=== PATIENT | female | born 1970 | race Caucasian/White ===

== ENCOUNTER 2024-03-22 09:29 | Outpatient (AMB) | payer BC, SELFPAY ==
--- NOTE | 2024-03-22 09:32 | A.OFFVIS_ITS ---
Vital Signs 03/22/24 09:33 Height 5 ft 4 in Weight 177 lb 11.081 oz BMI 30.5 BP 118/70 Blood Pressure Location Lt brachial Position Sitting Pulse 72 Pulse Source Pulse Oximeter Pulse Oximetry (%) 98 Oxygen Delivery Method Room Air Intake Visit Reasons: Polyarthritis Intake Note: Patient presents for follow up on polyarthritis today. Allergies No Known Allergies Allergy (Verified 03/22/24 09:35) HPI HPI Polyarthritis: Details: She feels well. No joint swelling or new rash. No fevers, dyspnea, pleurisy, urinary symptoms. She has picked up more hours at her job. She was previously working twice a week. She sometimes does over 20,000 steps a day. She has intermittent thigh pain felt as a twinge. 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 Previously she was on prophylaxis Review of Systems Const All systems reviewed & are unremarkable except as noted in HPI and below Physical Exam Vital Signs: Last Vital Signs Pulse 72 03/22/24 09:33 BP 118/70 03/22/24 09:33 Pulse Ox 98 03/22/24 09:33 Oxygen Delivery Method Room Air 03/22/24 09:33 BMI result Body Mass Index 30.5 Const Other: General: Comfortable CVS: RRR Respiratory: clear to auscultation bilaterally. Good respiratory effort Skin: No lesions seen MSK: No tenderness of any joints. No synovitis. Good range of motion of upper extremity and lower extremity. Assessment & Plan Assessment & Plan (1) HERRERA (polyarteritis nodosa): Comment: Controlled on monotherapy with methotrexate Code(s): M30.0 - Polyarteritis nodosa Category: Medical Plan: Labs for disease and drug monitoring ordered Continue methotrexate 17.5 mg once weekly Continue folic acid 2 mg daily [facility]ing [facility] She will start HSV prophylaxis with daily dosing because in the past she has forgotten the evening dose when it was prescribed b.i.d.. If she has recurrence of oral HSV, we will then prescribed b.i.d. dosing Return to clinic in 3 months Orders: Orders Erythrocyte Sedimentation Rate Today M30.0 - Polyarteritis nodosa Alanine Aminotransferase Today Z79.60 - skilled nursing (current) use of unspecified immunomodulators and immunosuppressants C Reactive Protein Today M30.0 - Polyarteritis nodosa Aspartate Amino Transferase Today Z79.60 - watermelon inspector (current) use of unspecified immunomodulators and immunosuppressants Creatinine Today Z79.60 - skilled nursing (current) use of unspecified immunomodulators and immunosuppressants Hepatitis B,C Profile Today M30.0 - Polyarteritis nodosa T Spot TB Today M30.0 - Polyarteritis nodosa Complete Blood Count Auto Diff Today Z79.60 - skilled nursing (current) use of unspecified immunomodulators and immunosuppressants Medications: New valacyclovir 500 mg PO DAILY 30 tabs 11RF Coding Level of Care Code Est Pt Level 4 (85572) Complex EM visit Add On G2211 Diagnoses HERRERA (polyarteritis nodosa) M30.0
[2024-03-22 09:33] VITALS: BP 118/70; PULSE 72; O2SAT 98; BMI 30.5
== END 2024-03-22 10:12 | disposition home or self-care (01) ==
PROVIDERS: PCP Registered Nurse; Visit Provider Internal Medicine Rheumatology
DX: M30.0 Polyarteritis nodosa (principal)
CPT/HCPCS: 99214

== ENCOUNTER → 2024-03-22 09:29 | Outpatient (BNVA) | payer BC, SELFPAY | PROVIDERS: PCP Registered Nurse; Visit Provider Internal Medicine Rheumatology ==

== ENCOUNTER 2024-04-18 08:31 | Outpatient (REF) | payer BC, SELFPAY ==
--- OUTSIDE RECORDS SUMMARY | 2024-04-18 08:48 | XMS_ITS ---
Author Name [facility] Organization Unknown History of Medication Use Medication Directions Dispensed Refills Start Date End Date Stat Zepbound 5 MG/0.5ML pen-injector 08/28/2023 active citalopram (CeleXA) 10 MG tablet Take 1 tablet (10 mg total) by mouth daily. 05/16/2023 active hydroCHLOROthiazide (MICROZIDE) 12.5 MG capsule TAKE 1 CAPSULE BY MOUTH EVERY DAY IN THE MORNING FOR 90 DAYS 05/16/2023 active valACYclovir (VALTREX) 500 MG tablet Take 1 tablet (500 mg total) by mouth 2 (two) times a day. 05/16/2023 active citalopram (CeleXA) 20 MG tablet Take 1 tablet (20 mg total) by mouth daily. 05/16/2023 active ibuprofen (MOTRIN) 200 MG tablet Take 2 tablets (400 mg total) by mouth. 05/16/2023 active amLODIPine (NORVASC) 10 MG tablet Take 1 tablet (10 mg total) by mouth daily. 05/16/2023 active folic acid (FOLVITE) 1 MG tablet Take 1 tablet (1,000 mcg total) by mouth daily. 05/16/2023 active ibuprofen (MOTRIN) 200 MG tablet Take 2 tablets (400 mg total) by mouth. 05/16/2023 active methotrexate 25 MG/ML injection INJECT 0.5ML (12.5MG) ONCE WEEKLY 05/16/2023 active thiamine (VITAMIN B-1) 100 mg tablet Take 1 tablet (100 mg total) by mouth 2 (two) times a day. 05/16/2023 active levothyroxine (SYNTHROID, LEVOTHROID) 75 MCG tablet TAKE 1 TABLET BY MOUTH EVERY DAY IN THE MORNING ON EMPTY STOMACH FOR 90 DAYS 05/16/2023 active atorvastatin (LIPITOR) 20 MG tablet Take 1 tablet (20 mg total) by mouth daily. 05/16/2023 active LORazepam (ATIVAN) 0.5 MG tablet Take 1 tablet (0.5 mg total) by mouth 4 times daily (every 6 hours) as needed. 05/16/2023 active Dilt-XR 180 MG 24 hr capsule TAKE 1 CAPSULE BY MOUTH EVERY DAY FOR 30 DAYS 05/16/2023 active Problems Problem Status Onset Date Problem Type Date of Resoluti on Source Bone lesion active EncounterDiagnosisAct CCT
[2024-04-18 11:20] LABS: MANUAL DIFF FLAG NO
[2024-04-18 11:30] LABS: Basophils Percent Auto 0.7 % (0-2); Eosinophils Absolute Auto 0.1 X10*3/uL (0.0-0.4); Eosinophils Percent Auto 1.3 % (0-4); Hematocrit 39.3 % (37.0-47.0); Hemoglobin 13.4 g/dl (12.0-16.0); Imm Gran Abs Auto 0.01 X10*3/uL (0.00-0.03); Imm Gran Pct Auto 0.2 % (0.0-0.4); Lymphocytes Absolute Auto 1.3 X10*3/uL (1.2-4.9); Lymphocytes Percent Auto 29.3 % (20-40); Mean Corpuscular HGB Conc 34.1 g/dl (31.0-35.0); Mean Corpuscular Hemoglobin 32.8 pg (27.0-33.0); Mean Corpuscular Volume 96.1 fL (80.0-98.0); Mean Platelet Volume 10.5 fL (9.4-12.3); Monocytes Absolute Auto 0.3 X10*3/uL (0.1-1.2); Monocytes Percent Auto 6.7 % (2-11); Neutrophils Absolute Auto 2.8 x10*3/uL (2.0-8.3); Neutrophils Percent Auto 61.8 % (45-73); Platelet Count 319 X10*3/uL (160-400); Red Blood Count 4.09 X10*6/uL (4.20-5.50); Red Cell Distribution Width 12.3 % (11.0-16.0); White Blood Count 4.5 X10*3/uL (4.8-10.8)
[2024-04-18 11:44] LABS: Alanine Aminotransferase 15 U/L (0-31); Aspartate Amino Transferase 19 U/L (5-31); C Reactive Protein 0.25 mg/dL (< or = 0.50); Estimated Glomerular Filt Rate > 60
[2024-04-18 12:19] LABS: Erythrocyte Sedimentation Rate 10 MM/HR (0-20)
[2024-04-18 12:45] LABS: HBS Num1 2.89 mIU/mL (0-7.99); HBc Num1 0.16 S/CO (0.00-0.79); Hepatitis B Core Antibody Nonreactive (Nonreactive); Hepatitis B Surface Antigen Negative (Negative); ~HepC Num1 0.09 S/CO (0.00-0.79); ~Hepatitis B Surface Antibody NONREACTIVE (Nonreactive); ~Hepatitis C Antibody Nonreactive (Nonreactive)
[2024-04-21 17:49] LABS: TS Negative Control Passed; TS Panel A 0; TS Panel B 0; TS Positive Control Passed; TSpotTB Negative (Negative)
== END 2024-04-18 08:32 | disposition home or self-care (01) ==
LOC: HO.WFDLDS 08:31
PROVIDERS: Visit Provider Internal Medicine Rheumatology
DX: M30.0 Polyarteritis nodosa (principal); Z79.60 Long term (current) use of unspecified immunomodulators and immunosuppressants
CPT/HCPCS: 36415; 82565; 84450; 84460; 85025; 85652; 86140; 86481; 86704; 86706; 86803; 87340

== ENCOUNTER 2024-07-05 13:53 | Outpatient (AMB) | payer BC, SELFPAY ==
--- NOTE | 2024-07-05 13:59 | A.OFFVIS_ITS ---
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 Pain in knees and ankles are controlled. She is experiencing lower back pain radiating to sides exacerbated with activities with lifting at work. She feels the pain at the end of the day. She is working in a new job since March. Pain is localized to lower back and spreads to the sides. She has been using TENs unit every other day with temporary relief. NO new skin lesions. Review of Systems Const All systems reviewed & are unremarkable except as noted in HPI and below Physical Exam Vital Signs: Last Vital Signs Pulse 61 07/05/24 14:02 BP 170/100 H 07/05/24 14:02 Pulse Ox 98 07/05/24 14:02 Oxygen Delivery Method Room Air 07/05/24 14:02 BMI result Body Mass Index 29.7 Const Other: General: Comfortable CVS: RRR Respiratory: clear to auscultation bilaterally. Good respiratory effort Skin: No lesions seen MSK: No tenderness of any joints. No synovitis. Normal range of motion of upper extremity and lower extremity. No tenderness of lumbar spinous process, paraspinal muscles or laterally. Normal lumber spine flexion. Assessment & Plan Assessment & Plan (1) HERRERA (polyarteritis nodosa): Comment: Controlled on monotherapy with methotrexate. She has occasional self limited pain on right femur. 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 She then developed rare manifestation of periostitis of right femur 01/2023 resolving on repeat MRI 08/19/2023. Mouth ulcers on po MTX resolved with increase the folic acid to 2 mg daily. MTX SC 03/2022-09/2022 then restarted 02/2023-. AZA 09/2022-02/2023 d/c vomiting. Code(s): M30.0 - Polyarteritis nodosa Category: Medical Plan: Labs for disease and drug monitoring ordered Continue methotrexate 17.5 mg once weekly SC. If she continues to remain in remission, will consider change SC to po Continue folic acid 2 mg daily R femur x-ray follow-up study HSV prophylaxis with valacylovir 500 mg daily. If she has active genital HSV, I will increase frequency of valacyclovir to 500 mg b.i.d. 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 We discussed conservative management. Code(s): M54.50 - Low back pain, unspecified Category: Medical Qualifiers: Back pain laterality: bilateral Chronicity: chronic Sciatica presence: without sciatica Qualified Code(s): M54.50 - Low back pain, unspecified; G89.29 - Other chronic pain Plan: PT ordered she has scheduled regular massages Continue home TENs unit every other day RTC 3 months (3) Lumbar spondylosis: Code(s): M47.816 - Spondylosis without myelopathy or radiculopathy, lumbar region Category: Medical Plan: See above (4) Myofascial muscle pain: Code(s): M79.18 - Myalgia, other site Category: Medical Plan: See above Orders: Orders PT Evaluation and Treatment Today M47.816 - Spondylosis without myelopathy or radiculopathy, lumbar region, M79.18 - Myalgia, other site Erythrocyte Sedimentation Rate Today Z79.899 - Other fci (current) drug therapy XR femur RT 2V Today M30.0 - Polyarteritis nodosa Aspartate Amino Transferase Today Z79.60 - longterm (current) use of unspecified immunomodulators and immunosuppressants Complete Blood Count Auto Diff Today Z79.60 - longterm (current) use of unspecified immunomodulators and immunosuppressants Creatinine Today Z79.60 - longterm (current) use of unspecified immunomodulators and immunosuppressants Alanine Aminotransferase Today Z79.60 - intermediate frame tender (current) use of unspecified immunomodulators and immunosuppressants C Reactive Protein Today Z79.899 - Other fci (current) drug therapy Medications: New folic acid 2 mg (2 x 1 mg) PO DAILY 180 tabs 3RF Coding Level of Care Code Est Pt Level 4 (71060) Complex EM visit Add On G2211 Diagnoses HERRERA (polyarteritis nodosa) M30.0 Chronic bilateral low back pain without sciatica M54.50; G89.29 Back pain laterality: bilateral Chronicity: chronic Sciatica presence: without sciatica Lumbar spondylosis M47.816 Myofascial muscle pain M79.18
[2024-07-05 14:02] VITALS: BP 170/100; PULSE 61; O2SAT 98; BMI 29.7
--- OUTSIDE RECORDS SUMMARY | 2024-07-05 16:34 | XMS_ITS ---
Author Organization [facility] Address [address] [place] [id number] Care Team Providers Care Insurance Verify Rep Name Role Phone ASHLYN LAM Primary Care Provider REASON FOR VISIT f/u meds Encounters Encounter Location Date Provider Diagnosis [address] [id number] 05/15/2024 ASHLYN LAM PLAN OF TREATMENT Next Appt Details Provider Name:ASHLYN Alston, 07/24/2024 08:00:00 AM, [address] [place] [address], [phone], Progress Notes * JOSEPH HODGEDOB:1970 ( 54 yo F)Acc No.[id number]:05/15/2024 Progress Notes Patient:??JOSEPH HODGE Provider:??Ashlyn Lam DNP :1970?Age:53 Y?Sex:Fe male Date:05/15/2024 Phone: Address:[address] [place] [address], [address], [place], [id number] Subjective: * Chief Complaints: * ?1. F/u meds. * Medical History:?? Objective: Assessment: Plan: * Treatment: * Billing Information: * Visit Code:?? * Procedure Codes:?? * Sign off status: Pending * Provider:??Ashlyn Lam DNP Date:??0 05/15/2024
--- OUTSIDE RECORDS SUMMARY | 2024-07-05 16:35 | XMS_ITS | Clinical Summary ---
Author Organization [facility] Address [address] [place] [id number] Care Team Providers Care Circulation Worker Name Role Phone Elisa Alarcon MD Primary Care Provider Allergies No known active allergies Medications Medication Sig Dispensed Refills Start Date End Date Status amLODIPine (NORVASC) tablet 5 mg Take 1 tablet by mouth daily. 0 10/09/2020 Active citalopram (CeleXA) 20 MG tablet Take 1 tablet by mouth daily. 0 01/27/2021 Active ibuprofen 200 MG tablet Take 400 mg by mouth. 0 Active levothyroxine (SYNTHROID) tablet 75 mcg Take 1 tablet by mouth daily. 0 01/07/2021 Active valsartan-hydroCHLOROt hiazide (DIOVAN-HCT) 320-12.5 MG per tablet Take 1 tablet by mouth daily. 0 10/01/2020 Active metoprolol succinate (TOPROL-XL) 24 hr tablet 25 mg 0 03/28/2021 Active hydroCHLOROthiazide (MICROZIDE) 12.5 MG capsule 0 03/28/2021 Active Active Problems No known active problems Social History Tobacco Use Types Packs/Day Years Used Date Smoking Tobacco: Former Cigarettes 1 - 2001 Smokeless Tobacco: Never Alcohol Use Standard Drinks/Week Comments Yes 14 (1 standard drink = 0.6 oz pu re alcohol) Sex and Gender Information Value Date Recorded Sex Assigned at Not on file Gender Identity Not on file Sexual Orientation Not on file Job Start Date Occupation Industry Not on file Not on file Not on file Last Filed Vital Signs Vital Sign Reading Time Taken Comments Blood Pressure - - Pulse - - Temperature - - Respiratory Rate - - Oxygen Saturation - - Inhaled Oxygen Concentration - - Weight 109.3 kg (241 lb) 06/30/2021 1:58 PM EDT Height 162.6 cm (5' 4 ) 06/30/2021 1:58 PM EDT Body Mass Index 41.37 06/30/2021 1:58 PM EDT Plan of Treatment Health Maintenance Due Date Last Done Comments Hepatitis B Vaccines (1 of 3 - 3-dose series) 1970 Hepatitis C Screening 1970 COVID-19 Vaccine (#1) 1970 Depression Screening 1983 BMI Counseling 06/15/1989 Preventative Health Evaluation 06/15/1989 Cervical Cancer Screening (Pap Smear) 06/15/1992 Colon Cancer Screening (Colonoscopy) 06/15/2016 DTap / Tdap / Td (5 - Td or Tdap) 11/23/2019 11/22/2009, 12/23/1972, 1970, Additional history exists Breast Cancer Screening (Mammogram) 06/15/2021 Shingrix-Zoster Vaccine (1 of 2) 06/15/2021 Influenza Vaccine (#1) 2023 9, 01/03/2013, 12/22/2011, Additional history exists Pneumococcal Vaccine Aged Out No long er eligible based on patient's age to complete this topic RSV Ped < 20 months Aged Out No longe r eligible based on patient's age to complete this topic Care Teams Circulation Worker Relationship Specialty Start Date End Date Elisa Alarcon MD PCP - General Internal Medicine 02/17/21
--- OUTSIDE RECORDS SUMMARY | 2024-07-05 16:35 | XMS_ITS | Clinical Summary ---
Author Organization [facility] Address [address] [place] [address] Care Team Providers Care Money Position Officer Name Role Phone Genaro Jacinta ROLLE Primary Care Provider Allergies No known active allergies Medications Medication Sig Dispensed Refills Start Date End Date Status amLODIPine (NORVASC) 10 MG tablet Take 1 tablet (10 mg total) by mouth daily. 05/05/2023 Active atorvastatin (LIPITOR) 20 MG tablet Take 1 tablet (20 mg total) by mouth daily. 03/23/2023 Active citalopram (CeleXA) 10 MG tablet Take 1 tablet (10 mg total) by mouth daily. 04/26/2023 Active citalopram (CeleXA) 20 MG tablet Take 1 tablet (20 mg total) by mouth daily. 02/04/2023 Active folic acid (FOLVITE) 1 MG tablet Take 1 tablet (1,000 mcg total) by mouth daily. 03/12/2023 Active levothyroxine (SYNTHROID, LEVOTHROID) 75 MCG tablet TAKE 1 TABLET BY MOUTH EVERY DAY IN THE MORNING ON EMPTY STOMACH FOR 90 DAYS 03/15/2023 Active methotrexate 25 MG/ML injection INJECT 0.5ML (12.5MG) ONCE WEEKLY 04/30/2023 Active thiamine (VITAMIN B-1) 100 mg tablet Take 1 tablet (100 mg total) by mouth 2 (two) times a day. 02/23/2023 Active LORazepam (ATIVAN) 0.5 MG tablet Take 1 tablet (0.5 mg total) by mouth 4 times daily (every 6 hours) as needed. Active valACYclovir (VALTREX) 500 MG tablet Take 1 tablet (500 mg total) by mouth 2 (two) times a day. 02/04/2023 Active hydroCHLOROthiazide (MICROZIDE) 12.5 MG capsule TAKE 1 CAPSULE BY MOUTH EVERY DAY IN THE MORNING FOR 90 DAYS 03/07/2023 Active Dilt-XR 180 MG 24 hr capsule TAKE 1 CAPSULE BY MOUTH EVERY DAY FOR 30 DAYS 05/05/2023 Active ibuprofen (MOTRIN) 200 MG tablet Take 2 tablets (400 mg total) by mouth. Active Zepbound 5 MG/0.5ML pen-injector 08/24/2023 Active Family History Medical History Relation Name Comments Mental illness Father dad Kidney disease Maternal Aunt 1 paty Substance Abuse Maternal Aunt 2 shobha Colon cancer Maternal Grandfather pop Lung cancer Maternal Grandfather pop Diabetes Maternal Grandmother octavio Kidney disease Maternal Uncle win Anxiety disorder Mother mom COPD Mother mom Heart attack Mother mom Heart disease Mother mom Hypertension Mother mom Kidney disease Mother mom Substance Abuse Paternal Grandfather dad's father Glaucoma Paternal Grandmother gram Substance Abuse Paternal Uncle mateusz Mental illness Sister h Mental illness Son n Relation Name Status Comments Father dad Maternal Aunt 1 paty Maternal Aunt 2 shobha Maternal Grandfather pop Maternal Grandmother octavio Maternal Uncle win Mother mom Paternal Grandfather dad's father Paternal Grandmother gram Paternal Uncle mateusz Sister h Son n Social History Tobacco Use Types Packs/Day Years Used Date Smoking Tobacco: Former Tobacco Cessation:Counseling Given: Not Answered Comments:quit several years ago Alcohol Use Standard Drinks/Week Comments Not Currently 0 (1 standard drink = 0.6 oz pur e alcohol) Sex and Gender Information Value Date Recorded Sex Assigned at Female 05/12/2023 10:22 AM EST Gender Identity Female 05/12/2023 10:22 AM EST Sexual Orientation Choose not to disclose 2023 10:22 AM EST Last Filed Vital Signs Vital Sign Reading Time Taken Comments Blood Pressure 125/80 08/25/2023 10:48 AM EDT Pulse 73 08/25/2023 10:48 AM EDT Temperature 36.8 ??C (98.2 ??F) 08/25/2023 10:48 AM E DT Respiratory Rate 18 08/25/2023 10:48 AM EDT Oxygen Saturation - - Inhaled Oxygen Concentration - - Weight 91.2 kg (201 lb) 08/25/2023 10:48 AM EDT Height 162.6 cm (5' 4 ) 08/25/2023 10:48 AM EDT Body Mass Index 34.5 08/25/2023 10:48 AM EDT Plan of Treatment Health Maintenance Due Date Last Done Comments Hepatitis C Virus Screening 1970 COVID-19 Vaccine (#1) 06/15/1976 HIV Screening 06/15/1984 DTaP/Tdap/Td Vaccines (1 - Tdap) 06/15/1990 Hepatitis B Vaccines (1 of 3 - 19+ 3-dose series) 06/03 Pneumococcal Vaccines 50+ (1 of 2 - PCV) 06/15/1990 Zoster (Shingles) Vaccine (1 of 2) 06/15/1990 Pap Smear (Ages 21-65) 06/15/1992 Mammogram 2011 Colonoscopy 06/15/2016 Influenza Vaccine 11/04/2023 Care Teams Money Position Officer Relationship Specialty Start Date End Date Jacinta Lam APRN [address] [place] [id number] PCP - General Internal Medicine 05/04/23
--- OUTSIDE RECORDS SUMMARY | 2024-07-05 16:35 | XMS_ITS ---
Author Organization [facility] Address [address] [place] [phone] Care Team Providers Care Marketing Analytics Manager Name Role Phone ASHLYN FERRARI Primary Care Provider [phone] REASON FOR VISIT Work Clearance request Encounters Encounter Location Date Provider Diagnosis [address] [id number] 03/23/2024 ASHLYN FERRARI PLAN OF TREATMENT Next Appt Details Provider Name:ASHLYN Alston, 07/24/2024 08:00:00 AM, [address] [place] [address], [phone], Progress Notes * JOSEPH HODGEDOB:1970 ( 53 yo F)Acc No.[id number]:03/23/2024 Patient:??JOSEPH HODGE :1970?Age:53 Y?Sex:Fe male Phone: Address:[address] , [address], [place] [address] * true * Date:??
--- OUTSIDE RECORDS SUMMARY | 2024-07-05 16:35 | XMS_ITS ---
Author Organization [facility] Address [address] [place] [phone] Care Team Providers Care Bisque Cleaner Name Role Phone ASHLYN FERRARI Primary Care Provider REASON FOR VISIT Refills MEDICATIONS Medication SIG (Take, Route, Fr equency, Duration) Notes Start Date End Date Status Zepbound 7.5 MG/0.5ML 0.5 mL Subcutaneou s once every 7 days as directed for 90 days 05/10/2024 06/09/2024 Active Encounters Encounter Location Date Provider Diagnosis [address] [id number] 05/10/2024 ASHLYN FERRARI PLAN OF TREATMENT Medication Medication Name Sig Start Date Stop Date Notes Zepbound 7.5 MG/0.5ML 0.5 mL Subcutaneou s once every 7 days as directed for 90 days 05/10/2024 06/09/2024 Next Appt Details Provider Name:ASHLYN Alston, 07/24/2024 08:00:00 AM, [address] [place] [address], [phone], Progress Notes * JOSEPH HODGEDOB:1970 ( 53 yo F)Acc No.[id number]:05/10/2024 Patient:??JOSEPH HODGE :1970?Age:53 Y?Sex:Fe male Phone: Address:[facility], [address], [place] [address] * Refills?? Start Zepbound Solution Auto-injector, 7.5 MG/0.5ML, Subcutaneous, 12, 0.5 mL, once every 7 days as directed, 90 days, Refills=2 * true * Date:??
== END 2024-07-05 14:30 | disposition home or self-care (01) ==
LOC: HO.RHES 13:53
PROVIDERS: PCP Registered Nurse; Visit Provider Internal Medicine Rheumatology
DX: M30.0 Polyarteritis nodosa (principal); M54.50 Low back pain, unspecified; G89.29 Other chronic pain; M47.816 Spondylosis without myelopathy or radiculopathy, lumbar region; M79.18 Myalgia, other site
CPT/HCPCS: 99214

== ENCOUNTER 2024-07-05 13:53 | Outpatient (REF) | payer BC, SELFPAY ==
--- OUTSIDE RECORDS SUMMARY | 2024-07-05 17:15 | XMS_ITS | Clinical Summary ---
Author Organization [facility] Address [address] [place] [id number] Care Team Providers Care It Security Engineer Name Role Phone Elisa Alarcon MD Primary [...] age to complete this topic Care Teams It Security Engineer Relationship Specialty Start Date End Date Elisa Alarcon MD PCP - General Internal Medicine 02/17/21
--- OUTSIDE RECORDS SUMMARY | 2024-07-05 17:15 | XMS_ITS | Patient Health Record ---
Author Organization Genaro [facility] Simona cantor [facility] Address [address] [place] [phone] Care Team Providers Care Loom Blower Name Role Phone JACINTA LAM Primary Care Provider ALLERGIES No Known Allergies RESULTS Component Value Reference Range Notes COMPREHENSIVE METABOLIC PANE L (43912) Reviewed date:09/15/2023 01:39:32 PM Interpretation: Performing Lab:NL2, [employer] [place] Plan[facility] [address] [place], [place] [address] Ignacio Bernstein Notes/Report: NON-FASTING; NON-FASTING; NON-FASTING FASTING:NO FASTING: NO GLUCOSE 91 65-139 mg/dL Non-fasting reference interval UREA NITROGEN (BUN) 11 7-25 mg/dL CREATININE 0.65 0.50-1.03 mg/dL EGFR 106 > OR = 60 mL/min/1.73m2 BUN/CREATININE RATIO SEE NOTE: 6-22 (calc) Not Reported: BUN and Creatinine are within reference range. SODIUM 140 135-146 mmol/L POTASSIUM 4.5 3.5-5.3 mmol/L CHLORIDE 104 98-110 mmol/L CARBON DIOXIDE 29 20-32 mmol/L CALCIUM 9.9 8.6-10.4 mg/dL PROTEIN, TOTAL 7.0 6.1-8.1 g/dL ALBUMIN 4.5 3.6-5.1 g/dL GLOBULIN 2.5 1.9-3.7 g/dL (calc) ALBUMIN/GLOBULIN RATIO 1.8 1.0-2.5 (calc) BILIRUBIN, TOTAL 0.8 0.2-1.2 mg/dL ALKALINE PHOSPHATASE 85 37-153 U/L AST 24 10-35 U/L ALT 54 6-29 U/L GGT (482) Reviewed date:09/15/2023 01:39:32 PM Interpretation: Performing Lab:NL2, [employer] Yayamariana Garcia Day Notes/Report: NON-FASTING; NON-FASTING; NON-FASTING FASTING:NO FASTING: NO GGT 11 3-70 U/L CBC (INCLUDES DIFF/PLT) (639 9) Reviewed date:09/15/2023 01:39:32 PM Interpretation: Performing Lab:MX Logic, [facility] Yayamariana Jacobscarine Notes/Report: NON-FASTING; NON-FASTING; NON-FASTING FASTING:NO FASTING: NO WHITE BLOOD CELL COUNT 4.3 3.8-10.8 Thousand/ uL RED BLOOD CELL COUNT 4.12 3.80-5.10 Million/uL HEMOGLOBIN 13.5 11.7-15.5 g/dL HEMATOCRIT 40.3 35.0-45.0 % MCV 97.8 80.0-100.0 fL MCH 32.8 27.0-33.0 pg MCHC 33.5 32.0-36.0 g/dL RDW 12.5 11.0-15.0 % PLATELET COUNT 344 140-400 Thousand/uL MPV 10.3 7.5-12.5 fL ABSOLUTE NEUTROPHILS 2765 7403-9003 cells/uL ABSOLUTE LYMPHOCYTES 4127 206-3712 cells/uL ABSOLUTE MONOCYTES 258 200-950 cells/uL ABSOLUTE EOSINOPHILS 30 15-500 cells/uL ABSOLUTE BASOPHILS 22 0-200 cells/uL NEUTROPHILS 64.3 LYMPHOCYTES 28.5 MONOCYTES 6.0 EOSINOPHILS 0.7 BASOPHILS 0.5 THYROID PANEL WITH TSH (7444 ) Reviewed date:01/27/2024 10:18:17 AM Interpretation: Performing Lab:MX Logic, [facility] Yayamariana Garcia [place] Notes/Report: NON-FASTING; NON-FASTING; NON-FASTING; NON-FASTING; NON-FAST FASTING:YES FASTING: YES T3 UPTAKE 25 22-35 % T4 (THYROXINE), TOTAL 9.5 5.1-11.9 mcg/dL FREE T4 INDEX (T7) 2.4 1.4-3.8 TSH 1.14 Reference Range > or = 20 Years 0.40-4.50 Ranges First trimester 0.26-2.66 Second trimester 0.55-2.73 Third trimester 0.43-2.91 CARDIO IQ(R) LIPID PANEL (91 716) Reviewed date:02/09/2024 01:26:16 PM Interpretation: Performing Lab:Evelia, [place] [facility] [employer]670[facility] Baldwin [address], [address], QqkeurvjaCL[address] Josh Armendariz PhD,[facility] Notes/Report: NON-FASTING; NON-FASTING; NON-FASTING; NON-FASTING; NON-FAST FASTING:YES FASTING: YES CHOLESTEROL, TOTAL 120 <200 mg/dL HDL CHOLESTEROL 59 >49 mg/dL TRIGLYCERIDES 115 <150 mg/dL LDL-CHOLESTEROL 41 <100 mg/dL (calc) Desirable range <100 mg/dL for primary prevention; <70 mg/dL for patients with CHD or diabetic patients with >= 2 CHD risk factors. LDL-C is now calculated using the Otis-North calculation, which is a validated novel method providing better accuracy than the Friedewald equation in the estimation of LDL-C. Otis SS et al. KHANH. 2013;310(19): 4192-3371 (http://education.[employer].com/faq/OSU469) LDL-C is now calculated using the Otis-North calculation, which is a validated novel method providing better accuracy than the Friedewald equation in the estimation of LDL-C. Otis SS et al. KHANH. 2013;310(19): 5116-2981 (http://education.[employer].com/faq/KKO766) CHOL/HDLC RATIO 2.0 <5.0 calc NON HDL CHOLESTEROL 61 <130 mg/dL (calc) For patients with diabetes plus 1 major ASCVD risk factor, treating to a non-HDL-C goal of <100 mg/dL (LDL-C of <70 mg/dL) is considered a therapeutic option. For patients with diabetes plus 1 major ASCVD risk factor, treating to a non-HDL-C goal of <100 mg/dL (LDL-C of <70 mg/dL) is considered a therapeutic option. TSH+FREE T4 (81973) Reviewed date:01/27/2024 10:18:17 AM Interpretation: Performing Lab:NL2, [facility] Center[facility] [facility] Francisco [facility] Notes/Report: NON-FASTING; NON-FASTING; NON-FASTING; NON-FASTING; NON-FAST FASTING:YES FASTING: YES TSH 1.14 Reference Range > or = 20 Years 0.40-4.50 Ranges First trimester 0.26-2.66 Second trimester 0.55-2.73 Third trimester 0.43-2.91 T4, FREE 1.2 0.8-1.8 ng/dL IRON, TIBC AND FERRITIN PANE L (5616) Reviewed date:01/27/2024 10:18:17 AM Interpretation: Performing Lab:MX Logic, RegulatoryB[facility] CenterNotizzaDaniel [place] [phone] [facility] Notes/Report: NON-FASTING; NON-FASTING; NON-FASTING; NON-FASTING; NON-FAST FASTING:YES FASTING: YES IRON, TOTAL 102 45-160 mcg/dL IRON BINDING CAPACITY 265 250-450 mcg/dL (jered c) % SATURATION 38 16-45 % (calc) FERRITIN 127 16-232 ng/mL ALBUMIN, RANDOM URINE W/CREA TININE (6517) Reviewed date:01/28/2024 10:32:07 AM Interpretation: Performing Lab:MX Logic, [facility] CenterNotizzaDaniel [place] [id number] [facility] Notes/Report: NON-FASTING; NON-FASTING; NON-FASTING; NON-FASTING; NON-FAST FASTING:YES FASTING: YES CREATININE, RANDOM URINE 60 20-275 mg/dL ALBUMIN, URINE 1.7 See Note: mg/dL Reference Range: Reference Range Not established ALBUMIN/CREATININE RATIO, RANDOM URINE 28 <30 mg/g creat The ADA defines abnormalities in albumin excretion as follows: Albuminuria Category Result (mg/g creatinine) Normal to Mildly increased <30 Moderately increased 30-299 Severely increased > OR = 300 The ADA recommends that at least two of three specimens collected within a 3-6 month period be abnormal before considering a patient to be within a diagnostic category. COMPREHENSIVE METABOLIC PANE L (34985) Reviewed date:01/27/2024 10:18:17 AM Interpretation: Performing Lab:NLMagnetic, [facility] Twoziewo[address] [facility] Ignacio Bernstein Notes/Report: NON-FASTING; NON-FASTING; NON-FASTING; NON-FASTING; NON-FAST FASTING:YES FASTING: YES GLUCOSE 86 65-99 mg/dL Fasting reference interval UREA NITROGEN (BUN) 10 7-25 mg/dL CREATININE 0.70 0.50-1.03 mg/dL EGFR 104 > OR = 60 mL/min/1.73m2 BUN/CREATININE RATIO SEE NOTE: 6-22 (calc) Not Reported: BUN and Creatinine are within reference range. SODIUM 139 135-146 mmol/L POTASSIUM 4.2 3.5-5.3 mmol/L CHLORIDE 103 98-110 mmol/L CARBON DIOXIDE 27 20-32 mmol/L CALCIUM 10.3 8.6-10.4 mg/dL PROTEIN, TOTAL 7.7 6.1-8.1 g/dL ALBUMIN 4.9 3.6-5.1 g/dL GLOBULIN 2.8 1.9-3.7 g/dL (calc) ALBUMIN/GLOBULIN RATIO 1.8 1.0-2.5 (calc) BILIRUBIN, TOTAL 0.7 0.2-1.2 mg/dL ALKALINE PHOSPHATASE 85 37-153 U/L AST 12 10-35 U/L ALT 22 6-29 U/L CARDIO IQ(R) DIRECT LDL (915 23) Reviewed date:02/09/2024 01:26:16 PM Interpretation: Performing Lab:Tony, [employer] [address], [address], NdswgctcxMX[address] Josh Armendariz PhD,[facility] Notes/Report: NON-FASTING; NON-FASTING; NON-FASTING; NON-FASTING; NON-FAST FASTING:YES FASTING: YES DIRECT LDL 48 <100 mg/dL Desirable range <100 mg/dL for primary prevention; <70 mg/dL for patients with CHD or diabetic patients with >= 2 CHD risk factors. CARDIO IQ(R) LIPOPROTEIN (a) (64222) Reviewed date:02/09/2024 01:26:16 PM Interpretation: Performing Lab:Tony, [employer].[facility] [address], [address], ZcoesgomfHZ[address] Josh Armendariz PhD,[facility] Notes/Report: NON-FASTING; NON-FASTING; NON-FASTING; NON-FASTING; NON-FAST FASTING:YES FASTING: YES LIPOPROTEIN (a) <10 <75 nmol/L Risk: Optimal <75 nmol/L; Moderate 75-125 nmol/L; High >125 nmol/L. Cardiovascular event risk category cut points (optimal, moderate, high) are based on David Trinidad [facility] 2017;69:692-711. CBC (INCLUDES DIFF/PLT) (639 9) Reviewed date:01/27/2024 10:18:07 AM Interpretation: Performing Lab:NL2, [facility] [address] [place], [place] [address] Ignacio Bernstein Notes/Report: NON-FASTING; NON-FASTING; NON-FASTING; NON-FASTING; NON-FAST FASTING:YES FASTING: YES WHITE BLOOD CELL COUNT 6.1 3.8-10.8 Thousand/ uL RED BLOOD CELL COUNT 4.40 3.80-5.10 Million/uL HEMOGLOBIN 15.0 11.7-15.5 g/dL HEMATOCRIT 44.6 35.0-45.0 % MCV 101.4 80.0-100.0 fL MCH 34.1 27.0-33.0 pg MCHC 33.6 32.0-36.0 g/dL For adults, a slight decrease in the calculated MCHC value (in the range of 30 to 32 g/dL) is most likely not clinically significant; however, it should be interpreted with caution in correlation with other red cell parameters and the patient's clinical condition. RDW 12.7 11.0-15.0 % PLATELET COUNT 363 140-400 Thousand/uL MPV 10.1 7.5-12.5 fL ABSOLUTE NEUTROPHILS 4496 7992-4918 cells/uL ABSOLUTE LYMPHOCYTES 4197 711-5962 cells/uL ABSOLUTE MONOCYTES 354 200-950 cells/uL ABSOLUTE EOSINOPHILS 73 15-500 cells/uL ABSOLUTE BASOPHILS 31 0-200 cells/uL NEUTROPHILS 73.7 LYMPHOCYTES 18.8 MONOCYTES 5.8 EOSINOPHILS 1.2 BASOPHILS 0.5 CARDIO IQ(R) HEMOGLOBIN A1c (45226) Reviewed date:02/09/2024 01:26:16 PM Interpretation: Performing Lab:Evelia, [employer].[address], [address], HlrenirnzXQ[address] Josh Armendariz PhD,[facility] Notes/Report: NON-FASTING; NON-FASTING; NON-FASTING; NON-FASTING; NON-FAST FASTING:YES FASTING: YES HEMOGLOBIN A1c 4.9 <5.7 % For the purpose of screening for the presence of diabetes: <5.7% is consistent with the absence of diabetes; 5.7-6.4% is consistent with increased risk for diabetes (prediabetes); >= 6.5% is consistent with diabetes. This assay result is consistent with a decreased risk of diabetes. Currently, no consensus exists regarding use of hemoglobin A1c for diagnosis of diabetes in children. According to [place] Diabetes Association (ADA) guidelines, hemoglobin A1c <7.0% represents optimal control in non- diabetic patients. Different metrics may apply to specific patient populations. Standards of Medical Care in Diabetes (ADA). This test was performed on the Leigh javed c503 platform. Effective 06/08/2023, a change in test platforms from the Nelson Sales Clerk Food to the Leigh javed c503 may have shifted HbA1c results compared to historical results. Based on laboratory validation testing conducted at [facility], the Leigh platform relative to the Nelson platform had an average increase in HbA1c value of <=0.3%. This difference is within accepted variability established by the National Glycohemoglobin Standardization Program. Note that not all individuals will have had a shift in their results and direct comparisons between historical and current results for testing conducted on different platforms is not recommended. CARDIO IQ(R) APOLIPOPROTEIN EVAL (21847) Reviewed date:02/09/2024 01:26:16 PM Interpretation: Performing Lab:Evelia [employer].[address], [address], IwkfxdzbzAE[address] Josh Armendariz PhD,[facility] Notes/Report: NON-FASTING; NON-FASTING; NON-FASTING; NON-FASTING; NON-FAST FASTING:YES FASTING: YES APOLIPOPROTEIN A1 166 >124 mg/dL Risk, Male: Optimal >= 115 mg/dL; High < 115 mg/dL; Risk, Female: Optimal >= 125 mg/dL; High <125 mg/dL; Cardiovascular event risk category cut points (optimal, high) are based on the AMORIS study Michele G et al. J Channel Marketing Specialist Med. 2004;255:188-205. APOLIPOPROTEIN B 47 <90 mg/dL Risk: Optimal <90 mg/dL; Moderate 90-119 mg/dL; High >= 120 mg/dL; Cardiovascular event risk category cut points (optimal, moderate, high) are based on National Lipid Association recommendations- Garcia TA et al. J of Clin Lipid. 2015; 9: 129-169 and Maco PS et al. Endocr Pract. 2017;23(Suppl 2):1-87. APOLIPOPROTEIN B/A1 RATIO 0.28 <0.63 Risk, Male: Optimal <0.77 mg/dL; Moderate 0.77-0.95 mg/dL; High >0.95 mg/dL; Risk, Female: Optimal <0.63 mg/dL; Moderate 0.63-0.78 mg/dL; High >0.78 mg/dL. Cardiovascular event risk category cut points (optimal, moderate, high) are based on the AMORIS study, Chivo G et al. J Channel Marketing Specialist Med. 2004;255:188-205. CARDIO IQ(R) INSULIN (19277) Reviewed date:02/09/2024 01:26:16 PM Interpretation: Performing Lab:Evelia, [facility] [place], [place] [address]egKaiser Foundation Hospitalfrancisco javier, [address] [place], [place] [address]HoepleoxhBG[address] Josh Armendariz PhD,[facility] Notes/Report: NON-FASTING; NON-FASTING; NON-FASTING; NON-FASTING; NON-FAST FASTING:YES FASTING: YES INSULIN 16.0 <18.5 uIU/mL VITAMIN B12/FOLATE, SERUM PA JUDD (7080) Reviewed date:01/27/2024 10:18:17 AM Interpretation: Performing Lab:NL2, [facility] [address]jugwy[address] Ignacio Bernstein Notes/Report: NON-FASTING; NON-FASTING; NON-FASTING; NON-FASTING; NON-FAST FASTING:YES FASTING: YES VITAMIN B12 047 945-8487 pg/mL FOLATE, SERUM 14.5 Reference Range Low: <3.4 Borderline: 3.4-5.4 Normal: >5.4 CARDIO IQ(R) FIBRINOGEN ANTI GEN, NEPHELOMETRY (19302) Reviewed date:02/09/2024 01:26:16 PM Interpretation: Performing Lab:Evelia, [facility], [address], DwbghjkidSA[address] Josh Armendariz PhD,[facility] Notes/Report: NON-FASTING; NON-FASTING; NON-FASTING; NON-FASTING; NON-FAST FASTING:YES FASTING: YES FIBRINOGEN ANTIGEN, NEPHELOMETRY 337 180-350 mg/dL Risk: Optimal <350 mg/dL; High >=350 mg/dL. Reference Range: 180-350 mg/dL. Adult cardiovascular event risk category cut points (optimal, moderate, high) are based on Siemens BN II and BN ProSpec(TM) System package insert. T3 REVERSE, LC/MS/MS (33938) Reviewed date:02/07/2024 06:10:53 AM Interpretation: Performing Lab:JACKY [facility] [id number] Mitch Morgan, [id number] Elkin Murphy M.D.,PhD Notes/Report: NON-FASTING; NON-FASTING; NON-FASTING; NON-FASTING; NON-FAST FASTING:YES FASTING: YES T3 REVERSE, LC/MS/MS 15 8-25 ng/dL This test was developed and its analytical performance characteristics have been determined by [employer] [place], [place]. It has not been cleared or approved by the U.S. Food and Drug Administration. This assay has been validated pursuant to the CLIA regulations and is used for clinical purposes. QUANTIFERON(R)-TB GOLD PLUS, 1 TUBE (35839) Reviewed date:02/24/2024 05:59:04 AM Interpretation: Performing Lab:NL2, [facility] Nlaeupzi[address] [place], [place] [address] Ignacio Bernstein Notes/Report: FASTING:NO FASTING: NO QUANTIFERON(R)-TB GOLD PLUS, 1 TUBE NEGATIVE NEGATIVE Negative test result. M. tuberculosis complex infection unlikely. NIL 0.01 MITOGEN-NIL 7.15 TB1-NIL 0.01 TB2-NIL 0.01 The Nil tube value reflects the background interferon gamma immune response of the patient's blood sample. This value has been subtracted from the patient's displayed TB and Mitogen results. Lower than expected results with the Mitogen tube prevent false-negative Quantiferon readings by detecting a patient with a potential immune suppressive condition and/or suboptimal pre-analytical specimen handling. The TB1 Antigen tube is coated with the M. tuberculosis-specific antigens designed to elicit responses from TB antigen primed CD4+ helper T-lymphocytes. The TB2 Antigen tube is coated with the M. tuberculosis-specific antigens designed to elicit responses from TB antigen primed CD4+ helper and CD8+ cytotoxic T-lymphocytes. For additional information, please refer to https://education.[employer]/faq/ZET848 (This link is being provided for informational/ educational purposes only.) REASON FOR REFERRAL Reason Please see order for swallow eval Diagnosis 1 Dysphagia, oropharyn geal phase (R13.12) [facility] Referring Provider First Name JACINTA Referring Provider Last Name NAGEEZI Referring Provider Speciality Nurse Prac titioner Referred Organization [facility] Referred Address [address] [place] [phone], Referred Provider Specialty Speech and l anguage therapist General Notes JINNY RADHA 0 11/23/2023 12:05:05 PM >demographics, insurance info, office note and order faxed to [facility] [phone] Referral Priority Routine MEDICATIONS Medication SIG (Take, Route, Frequency, Duration) Notes Start Date End Date Status Famotidine 40 MG TAKE 1 TABLET BY MOUTH EVERY DAY AT BEDTIME FOR 90 DAYS for 90 Active CoQ-10 50 MG 1 cap Orally once a day for 90 days Active Citalopram Hydrobromide 20 MG TAKE 1 TABLET BY MOUTH EVERY DAY Orally for 90 days Active valACYclovir HCl 500 MG 1 tablet Orally Twice a day Not-Taking Dilt-XR 180 MG TAKE 1 CAPSULE BY MOUTH EVERY DAY FOR 90 DAYS for 90 Active Levothyroxine Sodium 75 MCG TAKE 1 TABLET BY MOUTH EVERY DAY IN THE MORNING ON EMPTY STOMACH FOR 90 DAYS for 90 Active Thiamine HCl 100 MG TAKE 1 TABLET BY MOUTH TWICE A DAY FOR 90 DAYS for 90 Active Zepbound 2.5 MG/0.5ML 0.5 mL Subcutaneou s once every 7 days for 30 days Not-Taking Folic Acid 1 MG 1 tablet Orally Once a day Active Spironolactone 25 MG TAKE 1 TABLET BY MOUTH EVERY DAY FOR 30 DAYS for 30 Active Niacin Active Citalopram Hydrobromide 10 MG TAKE 1 TABLET BY MOUTH EVERY DAY FOR 90 DAYS for 90 Active Vitamin D3 Active Repatha SureClick 140 MG/ML INJECT 1 AUTO-INJECTOR DIRECTED SUBCUTANEOUSLY ONCE EVERY 14 DAYS for 28 Active Methotrexate Sodium Gets 12.5mg SC Wkly Active amLODIPine Besylate 10 MG TAKE 1 TABLET BY MOUTH EVERY DAY FOR 90 DAYS for 90 Active Ondansetron 8 MG 1 tablet on the tongue and allow to dissolve as needed Orally Once a day for 30 day(s) 02/21/2024 Active Ursodiol 300 MG TAKE 1 CAPSULE BY MOUTH TWICE A DAY FOR 90 DAYS for 90 Active LORazepam 0.5 MG 1 tab Orally Once a day for 30 days 02/21/2024 Active SOCIAL HISTORY Tobacco Use: Social History Observation Description Date Details (start date - stop date) Former Smoker NA - NA Sex Assigned At : Social History Observation Description Sex Assigned At Unknown Tobacco Use/Smoking Question Answer Notes Tobacco use: former smoker How long has it been since y ou last smoked? > 10 years Additional Findings: Tobacco User Modera te cigarette smoker (10-19 cigs/day) Section Notes: Lives in [place], [place] with & 1 son Lives [place] with & 1 son Lives [place] with & 1 son [place] with & 1 son [place] & 1 son [place] & 1 son [place] & 1 son [place] with & 1 son [place] with & 1 son [place] with & 1 son Lives [place] with & 1 son Lives [place] with & 1 son Lives [place] with & 1 son PROBLEMS Problem Type ICD Code Onset Dates Problem Status W/U Status Risk SNOMED Code Notes Problem Essential (primary) hypertension (I10) Active confirmed Essential hypertension (48284805) Problem Spondylosis, unspecified (M47.9) Active confirmed Spondylosis (884 7002) Problem Lumbago with sciatica, unspecified side (M54.40) Active confirmed Sciatica (88424730) Problem Dysphagia, oropharyngeal phase (R13.12) Active confirmed Oropharyngeal dysphagia (26511766) Problem Hypercholesteremia (E78.00) Active confirmed hypercholestero lemia (disorder) (98812945) Problem Anxiety (F41.9) Active confirmed Anxiet y (49807887) Problem Osteoporosis without current pathological fracture, unspecified osteoporosis type (M81.0) Active confirmed Age-related osteoporosis (377740360) Problem Rheumatoid arthritis involving multiple sites with positive rheumatoid factor (M05.79) Active confirmed Rheumatoid arth ritis (29958029) Problem Obstructive sleep apnea (G47.33) Active confirmed Obstructive s leep apnea (21152759) Problem Fatty liver disease, nonalcoholic (K76.0) Active confirmed Fatty l iver (705189331) Problem Obesity (E66.9) Active confirmed Obesit y (617565725) VITAL SIGNS Heart Rate 76 /min 02/21/2024 Height-cm 162.56 cm 02/21/2024 Oximetry 98 % 02/21/2024 Blood pressure diastolic 72 mm Hg 02/21/2024 Weight-kg 79.74 kg 02/21/2024 Height 64 in 02/21/2024 Blood pressure systolic 118 mm Hg 02/21/2024 Weight 175.8 lbs 02/21/2024 BMI 30.17 kg/m2 02/21/2024 Encounters Encounter Location Date Provider Diagnosis [address] [id number] 05/15/2024 JACINTA LAM [address] [id number] 08/04/2023 JACINTA LAM Essential (primary) hypertension I10 ; Hypercholesteremia E78.00 and Obesity E66.[address] [id number] 09/14/2023 JACINTA LAM Essential (primary) hypertension I10 ; Hypercholesteremia E78.00 ; Fatty liver disease, nonalcoholic K76.0 ; Hypokalemia E87.6 and Cholecystitis, unspecified K81.[address] [id number] 10/19/2023 JACINTA LAM SARS-associated coronavirus as the cause of diseases classified elsewhere B97.21 ; Obesity E66.9 ; Fatty liver disease, nonalcoholic K76.0 ; Hypercholesteremia E78.00 ; Essential (primary) hypertension I10 and Arteriosclerotic coronary artery disease I25.[address] [id number] [facility] [place] Dysphagia, oropharyn geal phase R13.12 ; Obesity E66.9 ; Fatty liver disease, nonalcoholic K76.0 ; Essential (primary) hypertension I10 ; Hypercholesteremia E78.00 ; Rheumatoid arthritis involving multiple sites with positive rheumatoid factor M05.79 ; Osteoporosis without current pathological fracture, unspecified osteoporosis type M81.0 and Obstructive sleep apnea G47.[address] [id number] [facility] for [facility] adult medical examination with abnormal findings Z00.01 ; Depression screen Z13.31 ; Encounter for screening for other disorder Z13.89 ; Encounter for screening for malignant neoplasm of colon Z12.11 ; Encounter for screening mammogram for malignant neoplasm of breast Z12.31 ; Encounter for screening for malignant neoplasm of cervix Z12.4 ; Hypercholesteremia E78.00 ; Essential (primary) hypertension I10 and Fatty liver disease, nonalcoholic K76.[address] [id number] 02/21/2024 [facility] [place] Anxiety F41.9 ; Naus ea alone R11.0 and Encounter to discuss test results Z71.[address] [id number] 07/09/[address] [id number] 08/12/2023 [facility], [address] [id number] 08/13/2023 [facility], [address] [id number] 08/24/2023 [facility], [address] [id number] 09/06/2023 [facility], [address] [id number] 11/16/2023 [facility], [address] [place], [place] [id number] 12/17/[address] [place], [place] [id number] 01/26/2024 [address] [place] [id number] 01/26/[address] [place], [place] [id number] 02/21/2024 [facility] Encounter for screen ing for diseases of the blood and blood-forming organs and certain disorders involving the immune mechanism Z13.[address] [id number] 03/23/[address] [id number] 05/10/2024 [facility] Encounter Date Diagnosis Assessment Notes Treatment Notes Treatment Clinical Notes Section Notes 08/04/2023 Essential (primary) hypertension (ICD-10 - I10) Encouraged DASH diet and regular CV exercise as tolerated 30 min/5 days week. Total time spent with patient 30 minutes which includes [id number] encounter and coordination of care. 08/04/2023 Hypercholesteremia (ICD-10 - E78.00) Eat heart-healthy foods. Eat fruits, vegetables, whole grains, beans, and other high-fiber foods. Eat lean proteins, such as seafood, lean meats, beans, nuts, and soy products. Eat healthy fats, such as canola and olive oil. Choose foods that are low in saturated fat. Limit sodium and alcohol. Limit drinks and foods with added sugar. Be physically active. Try to do moderate activity at least 2half hours a week. Or try to do vigorous activity at least 1a quarter hours a week. You may want to walk or try other activities, such as running, swimming, cycling, or playing tennis or team sports. Stay at a healthy weight or lose weight by making the changes in eating and physical activity listed above. Losing just a small amount of weight, even 5 to 10 pounds, can help reduce your risk for having a heart attack or stroke. Do not smoke. 09/14/2023 Essential (primary) hypertension (ICD-10 - I10) Patient was taken off her thiazide medication since her emergency visit last week due to low potassium. We will start patient on spironolactone to keep potassium levels within normal range while also having an antihypertensive effect. Total time spent with patient 32 minutes which includes face to face visit, education and coordination of care. Sriram Arteaga BSN, BODY TRIMMER UPHOLSTERER student saw the patient and formulated the note under direct supervision of Dr. Jacinta Lam, [place]. 09/14/2023 Hypercholesteremia (ICD-10 - E78.00) Hypercholesterolemia has been linked with fatty liver. We will plan to start ursodiol with the hope that improved liver function will regulate her cholesterol uptake more effectively. 10/19/2023 SARS-associated coronavirus as the cause of diseases classified elsewhere (ICD-10 - B97.21) 10/19/2023 Obesity (ICD-10 - E66.9) Common treatments for overweight and obesity include losing weight through healthy eating, being more physically active, and making other changes to your usual habits. Weight-management programs may help some people lose weight or keep from regaining lost weight. Some people who have obesity are unable to lose enough weight to improve their health or are unable to keep from regaining weight. In such cases, a doctor may consider adding other treatments, including weight-loss medicines, weight-loss devices, or bariatric surgery. Experts recommend losing 5 to 10 percent of your body weight within the first 6 months of treatment. If you weigh 200 pounds, this means losing as little as 10 pounds. Losing 5 to 10 percent of your weight may help lower your chances of developing health problems related to overweight and obesity improve health problems related to overweight and obesity, such as high blood pressure and high cholesterol levels. Following a healthy eating plan with fewer calories is often the first step in trying to treat overweight and obesity. People who are overweight or have obesity should also start regular physical activity when they begin their healthy eating plan. Being active may help you use calories. Regular physical activity may help you stay at a healthy weight. Changing your eating and physical activity habits and lifestyle is difficult, but with a plan, effort, regular support, and patience, you may be able to lose weight and improve your health. The following tips may help you think about ways to lose weight, engage in regular physical activity, and improve health over the long-term. Be prepared for set backs they are normal. After a setback, like overeating at a family or workplace gathering, try to regroup and focus on getting back to your healthy eating plan as soon as you can. Try to eat only when you're sitting at your dining room or kitchen table. At work, avoid areas where treats may be available. Track your progress using online food or physical activity trackers, such as the [employer] Senior Sergeant, that can help you keep track of the foods you eat, your physical activity, and your weight. These tools may help you stick with it and stay motivated. Set goals. Having specific goals can help you stay on track. Rather than be more active, set a goal to walk 15 to 30 minutes before work or at lunch on Wednesday and Wednesday. If you miss a walk on Wednesday, pick it up again Wednesday. Seek support. Ask for help or encouragement from your family, friends, or health day care provider. You can get support in person, through email or texting, or by talking on the phone. You can also join a support group. Specially trained health professionals can help you change your lifestyle. Resume zepbound 11/16/2023 Dysphagia, oropharyngeal phase (ICD-10 - R13.12) Reports several incidences of food getting stuck in her throat, her recent endoscopy was normal but this did not evaluate for strinctures-we will order a swallow eval to further evaluate. 11/16/2023 Obesity (ICD-10 - E66.9) Discussed weight and it affect on health status Discussed dietary choices/sales service route manager referral Intermittent fasting Increase exercise as tolerated, doing really well overall, weight is down and only 10 lbs to go to be at her goal 01/26/2024 Annual visit for general adult medical examination with abnormal findings (ICD-10 - Z00.01) The exam today was without concern. We discussed short and long-term health goals. The exam today was without concerns, states feel safe at home. Reports having working CO2 and Smoke detectors. Encouraged to wear sunscreen. Reports wearing a seatbelt when driving or as a passenger. Encourage regular exercise of moderate intensity 30 min 5x/week. 02/21/2024 Anxiety (ICD-10 - F41.9) Uses lorazapam very sparingly, does need for travel and will be traveling next month. Has 8 pills left from script sent last year. We will refill today. Discussed sound healing, she would like to participate as it's included in our membership. Done in office today 02/21/2024 Nausea alone (ICD-10 - R11.0) 02/21/2024 Encounter for screening for diseases of the blood and blood-forming organs and certain disorders involving the immune mechanism (ICD-10 - Z13.0) 01/26/2024 Depression screen (ICD-10 - Z13.31) PHQ9 Score: 5 risk for major depressive disorder 02/21/2024 Encounter to discuss test results (ICD-10 - Z71.2) All labs were reviewed and the results were explained to the patient in detail. Total time with patient >30 minutes which includes education and coordination of care. 11/16/2023 Fatty liver disease, nonalcoholic (ICD-10 - K76.0) Condition is stable and well controlled on current treatment. No changes made, medication(s) refilled as indicated 10/19/2023 Fatty liver disease, nonalcoholic (ICD-10 - K76.0) See below AST/ALT increased since statin 09/14/2023 Fatty liver disease, nonalcoholic (ICD-10 - K76.0) Patient has a history of fatty liver. We discussed the medication ursodiol with her, touching on the risks and benefits of the medication. Given that the medication can aid in her gallbladder deficiency at the moment it will have a compounded affect on her in helping her gallbladder and liver. 08/04/2023 Obesity (ICD-10 - E66.9) Discussed weight and it affect on health status Discussed dietary choices/sales service route manager referral Intermittent fasting Increase exercise as tolerated 09/14/2023 Hypokalemia (ICD-10 - E87.6) Patient was hospitalized last week for hypokalemia with a potassium of 2.9. She was taken off her diuretic which has potassium lowering effects. We will plan to start her on spironolactone as a thiazide with potassium sparring affect. 10/19/2023 Hypercholesteremia (ICD-10 - E78.00) LFTs have been increasing since we have started her on statin therapy, I am concerned about continuing statin therapy and we will send repatha. 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 No changes made, medication(s) refilled as indicated 01/26/2024 Encounter for screening for other disorder (ICD-10 - Z13.89) CAGE Questions Adapted to Include Drug Use (CAGE-AID) 1. Have you ever felt you ought to cut down on your drinking or drug use? N 2. Have people annoyed you by criticizing your drinking or drug use? N 3. Have you felt bad or guilty about your drinking or drug use? y (cannibis) 4. Have you ever had a drink or used drugs first thing in the morning to steady your nerves or to get rid of a hangover (eye-snowboarder)? N Total Score: 0 Scoring: Item responses on the CAGE questions are scored 0 for no and 1 for yes answers, with a higher score being an indication of alcohol problems. A total score of two or greater is considered clinically significant. We discussed her cannibis use, she uses it at night with a cup of herbal tea and it has helped her self-regulate . I have no concerns about her MJ use. 01/26/2024 Encounter for screening for malignant neoplasm of colon (ICD-10 - Z12.11) Pap not done at patient's request 10/19/2023 Essential (primary) hypertension (ICD-10 - I10) Condition is stable and well controlled on current treatment. No changes made, medication(s) refilled as indicated 09/14/2023 Cholecystitis, unspecified (ICD-10 - K81.9) Patient has a variety of factors that could have caused sludge in her gallbladder from rapid weight loss, to nutrient deficiency that could have been brought up by either her proton pump inhibitor, zepbound, and or her thiazide medication. With this in mind we will start her on ursodiol to attempt to restore her gallbladder function to baseline. 10/19/2023 Arteriosclerotic coronary artery disease (ICD-10 - I25.10) 11/16/2023 Hypercholesteremia (ICD-10 - E78.00) 01/26/2024 Encounter for screening mammogram for malignant neoplasm of breast (ICD-10 - Z12.31) Patient Education was given regarding breast mass and breast pain. Self breast examination was discussed. Assessment and plan reviewed with patient 01/26/2024 Encounter for screening for malignant neoplasm of cervix (ICD-10 - Z12.4) Colon cancer screening options reviewed in detail. Schedule colonoscopy for colorectal cancer screening 11/16/2023 Rheumatoid arthritis involving multiple sites with positive rheumatoid factor (ICD-10 - M05.79) 11/16/2023 Osteoporosis without current pathological fracture, unspecified osteoporosis type (ICD-10 - M81.0) 01/26/2024 Hypercholesteremia (ICD-10 - E78.00) 11/16/2023 Obstructive sleep apnea (ICD-10 - G47.33) 01/26/2024 Essential (primary) hypertension (ICD-10 - I10) Condition is stable and well controlled on current treatment. No changes made, medication(s) refilled as indicated 01/26/2024 Fatty liver disease, nonalcoholic (ICD-10 - K76.0) Condition is stable and well controlled on current treatment. No changes made, medication(s) refilled as indicated 08/04/2023 Other Total time spen t with patient 36 minutes which includes face to face visit, education and coordination of care. 09/14/2023 Other Total time spen t with patient 45 minutes which includes face to face visit, education and coordination of care. 02/21/2024 Other Total time spen t with patient 45 minutes which includes face to face visit, education and coordination of care. PLAN OF TREATMENT Pending Test Test Name Order Date MRI : Lumbosacral Spines 11/23/2022 Barium Swallow 11/16/2023 Echocardiogram 05/05/2023 Colonoscopy 08/20/2022 DEXA 02/23/2023 Ultrasound : Abdomen, upper 02/23/2023 X ray : LS Spine 12/08/2022 POLYSOMNOGRAPHY W/CPAP 02/23/2023 APOLIPOPROTEIN A1 08/18/2022 APOLIPOPROTEIN B 08/18/2022 APOLIPOPROTEIN B 11/23/2022 CBC (COMPLETE BLOOD COUNT) WITH DIFF COMPREHENSIVE METABOLIC PANEL 11/23/2022 COMPREHENSIVE METABOLIC PANEL 08/18/2022 LIPID PANEL, REFLEX TO DIRECT LDL 2022 LIPID PANEL, REFLEX TO DIRECT LDL 2022 Next Appt Details Provider Name:JACINTA Alston, 07/24/2024 08:00:00 AM, [address] [place] [address] STU, [place], [place], [phone], Insurance Providers Payer Name Payer Address Payer Phone Subscriber Number Group Number Insured Name Patient Relationship to Insured Coverage Start Date Coverage End Date [facility] [address] [place] [phone] [id number] JOSEPH HODGE Self - patient is the insured MEDICAL (GENERAL) HISTORY Medical History History ICD Code Alcohol abuse Anxiety Rheumatoid Arthritis Depression Hysterectomy (partial) Eczema HERRERA (Polyarteritis Nodosa) Hypothyroidism Angioedema (x 4 episodes) Surgical History Surgery Date(Month/Year) Appendectomy 1985 Biopsy - Skin on lower leg (Vasculitis) Echocardiogram 2022 Hysterectomy 2012 Knee surgery - Rt. 2021 Tubal ligation 2001 Colonoscopy - normal 10 year plan 2023 Endoscopy - normal 2023 Barium Swallow 2023 DEXA Scan 2023
--- OUTSIDE RECORDS SUMMARY | 2024-07-05 17:15 | XMS_ITS | Clinical Summary ---
Author Organization [facility] Address [address] [place] [address] Care Team Providers Care Revival Clerk Name Role Phone Genaro Jacinta ROLLE Primary [...] Colonoscopy 06/15/2016 Influenza Vaccine 11/04/2023 Care Teams Revival Clerk Relationship Specialty Start Date End Date Jacinta Lam APRN [address] [place] [id number] PCP - General Internal Medicine 05/04/23
[2024-07-05 18:06] LABS: MANUAL DIFF FLAG NO
[2024-07-05 18:14] LABS: Basophils Percent Auto 0.4 % (0-2); Eosinophils Absolute Auto 0.1 X10*3/uL (0.0-0.4); Eosinophils Percent Auto 1.2 % (0-4); Hematocrit 39.9 % (37.0-47.0); Hemoglobin 13.9 g/dl (12.0-16.0); Imm Gran Abs Auto 0.02 X10*3/uL (0.00-0.03); Imm Gran Pct Auto 0.3 % (0.0-0.4); Lymphocytes Absolute Auto 1.6 X10*3/uL (1.2-4.9); Lymphocytes Percent Auto 22.8 % (20-40); Mean Corpuscular HGB Conc 34.8 g/dl (31.0-35.0); Mean Corpuscular Hemoglobin 33.7 pg (27.0-33.0); Mean Corpuscular Volume 96.6 fL (80.0-98.0); Mean Platelet Volume 10.6 fL (9.4-12.3); Monocytes Absolute Auto 0.4 X10*3/uL (0.1-1.2); Monocytes Percent Auto 5.2 % (2-11); Neutrophils Absolute Auto 4.8 x10*3/uL (2.0-8.3); Neutrophils Percent Auto 70.1 % (45-73); Platelet Count 340 X10*3/uL (160-400); Red Blood Count 4.13 X10*6/uL (4.20-5.50); Red Cell Distribution Width 12.8 % (11.0-16.0); White Blood Count 6.9 X10*3/uL (4.8-10.8)
[2024-07-05 18:29] LABS: Alanine Aminotransferase 16 U/L (0-31); Aspartate Amino Transferase 16 U/L (5-31); C Reactive Protein < 0.10 mg/dL (< or = 0.50); Estimated Glomerular Filt Rate > 60
[2024-07-05 19:31] LABS: Erythrocyte Sedimentation Rate 8 MM/HR (0-20)
== END 2024-07-05 13:54 | disposition home or self-care (01) ==
LOC: HO.HKASLDS 13:53
PROVIDERS: PCP Registered Nurse; Visit Provider Internal Medicine Rheumatology
DX: Z79.899 Other long term (current) drug therapy (principal); Z79.60 Long term (current) use of unspecified immunomodulators and immunosuppressants
CPT/HCPCS: 36415; 82565; 84450; 84460; 85025; 85652; 86140

== ENCOUNTER 2024-07-07 12:07 | Outpatient (REF) | payer BC, SELFPAY ==
--- NOTE | ~2024-07-07 | XR_ITS ---
EXAMINATION: XR FEMUR 2 VIEWS RIGHT HISTORY: M30.0 - Polyarteritis nodosa COMPARISON: There are no prior studies available for comparison. FINDINGS: AP and lateral views of the right femur are submitted. There is benign appearing periosteal thickening involving the distal femoral diaphysis and metadiaphysis. There is no osseous destruction. There is no fracture or dislocation. The visualized portion of the hip joint is preserved. There is mild degenerative change of the medial department of the knee. The soft tissues are unremarkable. XR/XR femur RT 2V IMPRESSION: Benign-appearing periosteal reaction involving the distal femoral diaphysis and metadiaphysis. Comparison with prior outside studies is suggested. Electronically signed by: Bay Jackson MD 07/10/2024 01:06 PM EDT
--- OUTSIDE RECORDS SUMMARY | 2024-07-07 14:07 | XMS_ITS ---
Author Organization [facility] Address [address] [place] [phone] Care Team Providers Care Tankage Grinder Name Role Phone ASHLYN LAM Primary Care Provider [phone] REASON FOR VISIT f/u meds Encounters Encounter Location Date Provider Diagnosis [address] [id number] 05/15/2024 ASHLYN LAM PLAN OF TREATMENT Next Appt Details Provider Name:ASHLYN Alston, 07/24/2024 08:00:00 AM, [address] [place] [address], [phone], Progress Notes * JOSEPH HODGEDOB:1970 ( 54 yo F)Acc No.[id number]:05/15/2024 Progress Notes Patient:??JOSEPH HODGE Provider:??Ashlyn Lam DNP :1970?Age:53 Y?Sex:Fe male Date:05/15/2024 Phone: Address:[address] [place] [address], [address], [place], [phone] Subjective: * Chief Complaints: * ?1. F/u meds. * Medical History:?? Objective: Assessment: Plan: * Treatment: * Billing Information: * Visit Code:?? * Procedure Codes:?? * Sign off status: Pending * Provider:??Ashlyn Lam DNP Date:??0 05/15/2024
--- OUTSIDE RECORDS SUMMARY | 2024-07-07 14:07 | XMS_ITS ---
Author Organization [facility] Address [address] [place] [phone] Care Team Providers Care Aircraft Instrument Engineer Name Role Phone ASHLYN FERRARI Primary Care Provider REASON FOR VISIT Work Clearance request Encounters Encounter Location Date Provider Diagnosis [address] [id number] 03/23/2024 ASHLYN FERRARI PLAN OF TREATMENT Next Appt Details Provider Name:ASHLYN Alston, 07/24/2024 08:00:00 AM, [address] [place] [address], [phone], Progress Notes * JOSEPH HODGEDOB:1970 ( 53 yo F)Acc No.[id number]:03/23/2024 Patient:??JOSEPH HODGE :1970?Age:53 Y?Sex:Fe male Phone: Address:[address] , [address], [place] [address] * true * Date:??
--- OUTSIDE RECORDS SUMMARY | 2024-07-07 14:07 | XMS_ITS | Clinical Summary ---
Author Organization [facility] Address [address] [place] [id number] Care Team Providers Care Program Or Project Administrator Name Role Phone Elisa Alarcon MD Primary [...] age to complete this topic Care Teams Program Or Project Administrator Relationship Specialty Start Date End Date Elisa Alarcon MD PCP - General Internal Medicine 02/17/21
--- OUTSIDE RECORDS SUMMARY | 2024-07-07 14:07 | XMS_ITS | Clinical Summary ---
Author Organization [facility] Address [address] [place] [address] Care Team Providers Care Project Scheduler Name Role Phone Genaro Jacinta ROLLE Primary [...] Colonoscopy 06/15/2016 Influenza Vaccine 11/04/2023 Care Teams Project Scheduler Relationship Specialty Start Date End Date Jacinta Lam APRN [address] [place] [id number] PCP - General Internal Medicine 05/04/23
--- OUTSIDE RECORDS SUMMARY | 2024-07-07 14:08 | XMS_ITS ---
Author Organization [facility] Address [address] [place] [phone] Care Team Providers Care Senior Oracle Database Developer Name Role Phone ASHLYN FERRARI Primary Care Provider REASON FOR VISIT Refills MEDICATIONS Medication SIG (Take, Route, Fr equency, Duration) Notes Start Date End Date Status Zepbound 7.5 MG/0.5ML 0.5 mL Subcutaneou s once every 7 days as directed for 90 days 05/10/2024 06/09/2024 Active Encounters Encounter Location Date Provider Diagnosis [address] [id number] 05/10/2024 ASHLYN FERRARI PLAN OF TREATMENT Medication Medication Name Sig Start Date Stop Date Notes Zepbound 7.5 MG/0.5ML 0.5 mL Subcutaneou s once every 7 days as directed for 90 days 05/10/2024 06/09/2024 Next Appt Details Provider Name:ASHLYN Alston, 07/24/2024 08:00:00 AM, [address] [place] [address], [phone], Progress Notes * JOSEPH HODGEDOB:1970 ( 53 yo F)Acc No.[id number]:05/10/2024 Patient:??JOSEPH HODGE :1970?Age:53 Y?Sex:Fe male Phone: Address:[facility], [address], [place] [address] * Refills?? Start Zepbound Solution Auto-injector, 7.5 MG/0.5ML, Subcutaneous, 12, 0.5 mL, once every 7 days as directed, 90 days, Refills=2 * true * Date:??
== END 2024-07-07 12:08 | disposition home or self-care (01) ==
LOC: HO.XRAY 12:07
PROVIDERS: Visit Provider Internal Medicine Rheumatology
DX: M30.0 Polyarteritis nodosa (principal)
CPT/HCPCS: 73552

== ENCOUNTER → 2024-07-07 12:13 | Outpatient (BNV) | payer BC, SELFPAY | PROVIDERS: Visit Provider Radiology Diagnostic Radiology | DX: M30.0 Polyarteritis nodosa (principal) | CPT/HCPCS: 73552 ==

== ENCOUNTER 2024-10-24 10:38 | Outpatient (AMB) | payer BC, SELFPAY ==
--- NOTE | 2024-10-24 10:41 | A.OFFVIS_ITS ---
Vital Signs 10/24/24 10:45 Height 5 ft 4 in Weight 180 lb 4 oz BMI 30.9 BP 130/80 Blood Pressure Location Rt brachial Position Sitting Pulse 60 Pulse Source Pulse Oximeter Pulse Oximetry (%) 100 Oxygen Delivery Method Room Air Intake Visit Reasons: 3 Months Intake Note: Patient present for an Arthtitis follow up Allergies No Known Allergies Allergy (Verified 10/24/24 10:41) HPI HPI 3 Months: Details: Feels good. Left knee locks and she has pain but improves with ambulation. Uses a cane at night as it occurs commonly at night. Long bus ride or sitting for prolonged period causes knee stiffness. Increased weight due to vacation. Increase weight has coincided with increase knee symptoms. Occasionally she has pain in her right femur for a couple of days. Episodic. No new joint swelling. 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 Her hours will be reduced to 20 hours a week eventually. She has history of right meniscus repair. She has seen Orthopedic surgery in the past and has received cortisone injections in bilateral knees. Physical Exam Vital Signs: Last Vital Signs Pulse 60 10/24/24 10:45 BP 130/80 10/24/24 10:45 Pulse Ox 100 10/24/24 10:45 Oxygen Delivery Method Room Air 10/24/24 10:45 BMI result Body Mass Index 30.9 Const Other: General: Comfortable CVS: RRR Respiratory: clear to auscultation bilaterally. Good respiratory effort Skin: No lesions seen MSK: No tenderness of any joints. No synovitis. Normal range of motion of upper extremity and lower extremity. Assessment & Plan Assessment & Plan (1) HERRERA (polyarteritis nodosa): Comment: She has episodic pain in right thigh localized to periostitis of right femur, which is still present on most recent follow up x-ray and unchanged when compared to x-ray from April 2023. We discussed increasing methotrexate to optimize treatment. 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 She then developed rare manifestation of periostitis of right femur 01/2023 resolving on repeat MRI 08/19/2023. Mouth ulcers on po MTX resolved with increase the folic acid to 2 mg daily. MTX SC 03/2022-09/2022 then restarted 02/2023-. AZA 09/2022-02/2023 d/c vomiting. Code(s): M30.0 - Polyarteritis nodosa Category: Medical Plan: Labs for disease and drug monitoring ordered Increase methotrexate 20 mg once weekly subcutaneous injection. She prefers to remain on subcutaneous injection as she experienced GI discomfort with oral methotrexate Continue folic acid 2 mg daily HSV prophylaxis with valacylovir 500 mg daily. If she has active genital HSV, I will increase frequency of valacyclovir to 500 mg b.i.d. Return to clinic in 3 months (2) Osteoarthritis of left knee: Comment: Previously treated with cortisone injections from Orthopedic surgery before HERRERA diagnosis. I suspect stiffness is secondary to osteoarthritis. We discussed conservative management. Code(s): M17.12 - Unilateral primary osteoarthritis, left knee Category: Medical Qualifiers: Osteoarthritis type: primary Qualified Code(s): M17.12 - Unilateral primary osteoarthritis, left knee Plan: PT ordered for strengthening She will continue to K tape If symptoms do not improve with PT, I will order x-ray left knee next visit Encouraged weight loss with healthy eating and exercise. She is currently on Zepbound. Return to clinic in 3 months Orders: Orders Complete Blood Count Man Dif Today Z79.899 - Other chcf (current) drug therapy Aspartate Amino Transferase Today Z79.899 - Other intermediate designer (current) drug therapy C Reactive Protein Today Z79.899 - Other intermediate designer (current) drug therapy PT Evaluation and Treatment Today M17.12 - Unilateral primary osteoarthritis, left knee Erythrocyte Sedimentation Rate Today Z79.899 - Other chcf (current) drug therapy Alanine Aminotransferase Today Z79.899 - Other intermediate designer (current) drug therapy Creatinine Today Z79.899 - Other chcf (current) drug therapy Medications: Changed From methotrexate sodium 17.5 mg (0.7 mL) subcut QWEEK 4 mL 2RF To methotrexate sodium 20 mg (0.8 mL) subcut QWEEK 4 mL 2RF Refilled folic acid 2 mg (2 x 1 mg) PO DAILY 180 tabs 3RF Coding Level of Care Code Est Pt Level 4 (56515) Complex EM visit Add On G2211 Diagnoses HERRERA (polyarteritis nodosa) M30.0 Primary osteoarthritis of left knee M17.12 Osteoarthritis type: primary
[2024-10-24 10:45] VITALS: BP 130/80; PULSE 60; O2SAT 100; BMI 30.9
--- OUTSIDE RECORDS SUMMARY | 2024-10-24 11:50 | XMS_ITS | Clinical Summary ---
Author Organization [facility] Address [address] [facility] 7t [place] [address] Care Team Providers Care Yoker Machine Operator Name Role Phone Unavailable Primary Care Provider Unavailabl e Encounters Date Type Department Care Team Description 08/18/2024 Orders Only [facility] MEDICAL [address] [place] [address] Leah Puentes FNP from Last 3 Months Social History Tobacco Use Types Packs/Day Years Used Date Smoking Tobacco: Never Assessed Comments Unknown Sex and Gender Information Value Date Recorded Sex Assigned at Not on file Legal Sex Female 8:33 PM EDT Gender Identity Not on file Sexual Orientation Not on file Last Filed Vital Signs Vital Sign Reading Time Taken Comments Blood Pressure 138/90 01/08/2021 11:15 AM EDT Pulse 90 01/08/2021 11:15 AM EDT Temperature - - Respiratory Rate - - Oxygen Saturation 98% 01/08/2021 11:15 AM EDT Inhaled Oxygen Concentration - - Weight - - Height 165.1 cm (5' 5 ) 01/08/2021 11:15 AM EDT Body Mass Index - - Plan of Treatment Health Maintenance Due Date Last Done Comments CT Colonography 1971 Colonoscopy 1971 Colorectal Cancer Screening 1971 Depression Screening 1971 FIT DNA/Cologuard 1971 FIT 1971 FOBT 1971 Sigmoidoscopy 1971 Disability Screening 1971 IPV Vaccines (4 of 4 - 4-dose series) 1975 12/23/1972, 1971, 1971, Additional history exists Alcohol/Substance Use Screening 1983 Tobacco Screening 1983 Hepatitis B Vaccines (1 of 3 - 19+ 3-dose series) 06/15/1990 Pap Smear 06/15/1992 Cervical Cancer Screening 06/15/2001 HPV/Cotest 06/15/2001 Mammogram 2011 DTaP/Tdap/Td Vaccines (6 - Td or Tdap) 11/23/2019 11/22/2009, 12/03/2000, 12/10/1987, Additional history exists Pneumococcal Vaccine: 50+ Years (1 of 1 - PCV) 06/15/2021 Zoster Vaccines (1 of 2) 06/15/2021 COVID-19 Vaccine (3 - season) 2023 05/10/2020, 04/12/2020 Influenza Vaccine (#1) 2024 , 01/23/2020, 12/06/2018, Additional history exists RSV Patients and Patients Aged 60 years or older (1 - 1-dose 75+ series) 06/15/2046 HIB Vaccines Aged Out No longer eligi ble based on patient's age to complete this topic HPV Vaccines Aged Out No longer eligi ble based on patient's age to complete this topic Hepatitis A Vaccines Aged Out No long er eligible based on patient's age to complete this topic Meningococcal B Vaccine Aged Out No l onger eligible based on patient's age to complete this topic Meningococcal Vaccine Aged Out No edward edita eligible based on patient's age to complete this topic RSV under 20 months Aged Out No longe r eligible based on patient's age to complete this topic Rotavirus Vaccines Aged Out No longer eligible based on patient's age to complete this topic Procedures Procedure Name Priority Date/Time Associated Diagnosis Comments US ABDOMEN, RIGHT UPPER QUADRANT Routine 08/18/2024 7:36 AM EDT from Last 3 Months Results * US ABDOMEN, RIGHT UPPER QUADRANT (08/18/2024 7:36 AM EDT) Anatomical Region Laterality Modality Abdomen Ultrasound 08/18/2024 7:36 AM EDT Narrative 08/20/2024 10:38 AM EDT US RUQ Reason: Cholecystitis; Hx of gallbladder pain; and sludge; needs re-eval. COMPARISON: 09/06/2023. FINDINGS: Liver: Normal in size and echotexture. No focal lesion. Smooth hepatic contour. Main portal vein patent with normal hepatopetal direction of flow. Gallbladder: Contracted. There are two rounded hyperechoic foci measuring up to 0.3 cm without definite posterior acoustic shadow. The mobility of these foci are not well-evaluated. Normal wall thickness. No pericholecystic fluid. Negative Quinn sign. Biliary Tree: No intrahepatic or extrahepatic bile duct dilation is identified. Common duct measures: 0.6 cm. Pancreas: No abnormality in the visualized portions of the pancreas. Right kidney: 12.4 cm in length. Normal parenchymal echotexture and thickness. No hydronephrosis, stone or mass. A non-shadowing 0.5 cm echogenic focus in the cortex of the upper pole demonstrates twinkling artifact on color Doppler imaging and likely represents collecting system debris or other artifact. IMPRESSION: Contracted gallbladder containing two rounded hyperechoic foci, possibly representing small stones or polyps. If these do represent polyps, they are consistent with low risk category and require no follow-up per Corwin Peace et al. Management of Incidentally Detected Gallbladder Polyps: Society of Radiologists in Ultrasound Consensus Conference Recommendations. Radiology 202; 305:277-289. [email or web address] Otherwise unremarkable right upper quadrant ultrasound. WSN: [id number] Ordering Physician: Leah Puentes Dictated By: Romeo Burr MD Dictated Date/Time: 08/20/24 10:35 a Reviewed By: Romeo Burr MD Signed By: Romeo Burr MD Signed Date/Time: 08/20/24 10:35 am Transcribed By: SUZY Transcribed Date/Time: 08/20/24 6:44 am Procedure Note Donotuseinterpreter, Image - 09/04/2024 US RUQ Reason: Cholecystitis; Hx of gallbladder pain; and sludge; needsre-eval. COMPARISON: 09/06/2023. FINDINGS: Liver: Normal in size and echotexture. No focal lesion. Smooth hepaticcontour. Main portal vein patent with normal hepatopetal direction of flow. Gallbladder: Contracted. There are two rounded hyperechoic foci measuringup to 0.3 cm without definite posterior acoustic shadow. The mobility of thesefoci are not well-evaluated. Normal wall thickness. No pericholecystic fluid. Negative Quinn sign. Biliary Tree: No intrahepatic or extrahepatic bile duct dilation isidentified. Common duct measures: 0.6 cm. Pancreas: No abnormality in the visualized portions of the pancreas. Right kidney: 12.4 cm in length. Normal parenchymal echotexture andthickness. No hydronephrosis, stone or mass. A non-shadowing 0.5 cm echogenic focusin the cortex of the upper pole demonstrates twinkling artifact on colorDoppler imaging and likely represents collecting system debris or otherartifact. IMPRESSION: Contracted gallbladder containing two rounded hyperechoic foci, possibly representing small stones or polyps. If these do represent polyps, theyare consistent with low risk category and require no follow-up per Corwin Peace etal. Management of Incidentally Detected Gallbladder Polyps: Society ofRadiologists in Ultrasound Consensus Conference Recommendations. Radiology 2022;305:277-289. [email or web address] Otherwise unremarkable right upper quadrant ultrasound. WSN: [id number] Ordering Physician: Leah Puentes Dictated By: Romeo Burr MD Dictated Date/Time: 08/20/24 10:35 a Reviewed By: Romeo Burr MD Signed By: Romeo Burr MD Signed Date/Time: 08/20/24 10:35 am Transcribed By: CSVadim Transcribed Date/Time: 08/20/24 6:44 am us Leah Puentes ORTHOTIST OR PROSTHETIST IMG US PROCEDURES Edit ed Result - Final from Last 3 Months
--- OUTSIDE RECORDS SUMMARY | 2024-10-24 11:50 | XMS_ITS | Clinical Summary ---
Author Organization [facility] Address [address] [place] [address] Care Team Providers Care School Bus Dispatcher Name Role Phone Genaro Jacinta ROLLE Primary Care Provider Allergies No known active allergies Medications amLODIPine (NORVASC) 10 MG tablet Take 1 [...] 2 (two) times a day. 02/04/2023 Active hydroCHLOROthia zide (MICROZIDE) 12.5 MG capsule TAKE 1 CAPSULE [...] drink = 0.6 oz pur e alcohol) Comments Unknown Sex and Gender Information Value Date Recorded Sex Assigned at Female 05/12/2023 10:22 AM EST Legal Sex Female 5:36 PM EST Gender Identity Female 05/12/2023 10:22 AM EST Sexual Orientation Choose not to disclose 2023 10:22 AM EST Last Filed Vital Signs Vital Sign Reading Time Taken Comments Blood Pressure 125/80 08/25/2023 10:48 AM EDT Pulse 73 08/25/2023 10:48 AM EDT Temperature 36.8 C (98.2 F) 08/25/2023 10:48 AM EDT Respiratory Rate 18 08/25/2023 10:48 AM EDT [...] 06/15/1992 Mammogram 2011 Colonoscopy 06/15/2016 Influenza Vaccine 11/03/2024 Insurance [facility] Care Teams School Bus Dispatcher Relationship Specialty Start Date End Date Jacinta Lam APR[place] [address] PCP - General Internal Medicine 05/04/23
--- OUTSIDE RECORDS SUMMARY | 2024-10-24 11:50 | XMS_ITS ---
Author Name [facility] Unknown History of Medication Use Medication Directions Dispensed Refills Start Date End Date Stat Dilt-XR 180 MG 24 hr capsule TAKE 1 CAPSULE BY MOUTH EVERY DAY FOR 30 DAYS 05/05/2023 active folic acid (FOLVITE) 1 MG tablet Take 1 tablet (1,000 mcg total) by mouth daily. 03/12/2023 active thiamine (VITAMIN B-1) 100 mg tablet Take 1 tablet (100 mg total) by mouth 2 (two) times a day. 02/23/2023 active ibuprofen (MOTRIN) 200 MG tablet Take 2 tablets (400 mg total) by mouth. active LORazepam (ATIVAN) 0.5 MG tablet Take 1 tablet (0.5 mg total) by mouth 4 times daily (every 6 hours) as needed. active Problems Problem Status Onset Date Problem Type Date of Resoluti on Source Bone lesion active EncounterDiagnosisAct CCT Encounters Encounter Type Encounter Reason [facility] Ambulatory Disorder of bone, unspecified Disorder of bone, unspecified [facility] 08/25/2023 [facility] 08/11/2023 Ambulatory Neoplasm of unspecified behavior of bone, soft tissue, and skin Neoplasm of unspecified behavior of bone, soft tissue, and skin [facility] 08/11/2023 [facility]ulatory [facility] 05/12/2023 Ambulatory [facility] 05/12/2023 Ambulatory [facility] 05/12/2023 Ambulatory Neoplasm of unspecified behavior of bone, soft tissue, and skin Neoplasm of unspecified behavior of bone, soft tissue, and skin [facility] 05/12/2023 Care Team Organization Name Specialty Phone Email Start Date End Da te [facility] VONDA [facility] 05/12/2023 06/21/2024 [facility] Jacinta Lam Primary Care 05/04/2023
--- OUTSIDE RECORDS SUMMARY | 2024-10-24 11:50 | XMS_ITS | Clinical Summary ---
Author Organization [facility] Address [address] [place] [address] Care Team Providers Care Threshing Department Supervisor Name Role Phone Elisa Alarcon MD Primary [...] (1 of 2) 06/15/2021 Influenza Vaccine (#1) 2024 9, 01/03/2013, 12/22/2011, Additional history exists Pneumococcal Vaccine Aged Out No long er eligible based on patient's age to complete this topic RSV Ped < 20 months Aged Out No longe r eligible based on patient's age to complete this topic Care Teams Threshing Department Supervisor Relationship Specialty Start Date End Date Elisa Alarcon MD PCP - General Internal Medicine 02/17/21
--- OUTSIDE RECORDS SUMMARY | 2024-10-24 11:50 | XMS_ITS | Clinical Summary ---
Author Organization [facility] Address [address] [facility] [address] [place] [address] Phone Care Team Providers Care Manipulative Therapy Specialist Name Role Phone Elisa Alarcon MD Unavailable +1- [phone] Elisa Alarcon MD Primary Care Provid er Allergies No known active allergies Medications amLODIPine (NORVASC) 10 MG tablet Take 5 mg by mouth daily. Active citalopram hydrobromide (CELEXA ORAL) Take 30 mg by mouth daily. Active LORazepam (ATIVAN) 0.5 MG tablet Take 0.5 mg by mouth every 6 (six) hours as needed for anxiety. Active OMEPRAZOLE ORAL Take by mouth. Active levothyroxine (SYNTHROID, LEVOTHROID) 75 MCG tablet Take 75 mcg by mouth every morning. Active metoprolol succinate (TOPROL-XL) 25 MG 24 hr tablet Take 1 tablet (25 mg total) by mouth daily. 30 tablet 1 Active hydroCHLOROthiaz cosmo (HYDRODIURIL) 12.5 MG tablet Take 1 tablet (12.5 mg total) by mouth daily. 30 tablet 1 Active valsartan (DIOVAN) 320 MG tablet Take 320 mg by mouth daily. 021 Discontinued Social History Tobacco Use Types Packs/Day Years Used Date Smoking Tobacco: Former Smokeless Tobacco: Never Alcohol Use Standard Drinks/Week Comments Yes 0 (1 standard drink = 0.6 oz pur e alcohol) Education Answer Date Recorded Are you interested in more education? Not on joel e 07/31/2022 Are you concerned about learning? Not on file 07/31/2022 No 07/31/2022 No 07/31/2022 Digital Access Answer Date Recorded No 08/31/2022 No 08/31/2022 No 08/31/2022 Reliable internet access at home? Not on file 08/31/2022 Device with a working camera? Not on file Comments Unknown Sex and Gender Information Value Date Recorded Sex Assigned at Female 09/02/2019 7:17 AM EDT Legal Sex Female 10:22 AM EST Gender Identity Female 09/02/2019 7:17 AM EDT Sexual Orientation Choose not to disclose 2020 6:34 AM EST Last Filed Vital Signs Vital Sign Reading Time Taken Comments Blood Pressure 111/64 03/28/2021 9:49 AM EST Pulse 70 03/28/2021 8:16 AM EST Temperature 36.7 C (98.1 F) 03/28/2021 6:31 AM EST Respiratory Rate 17 03/28/2021 7:30 AM EST Oxygen Saturation 94% 03/28/2021 9:49 AM EST Inhaled Oxygen Concentration - - Weight 97.5 kg (215 lb) 09/02/2019 7:15 AM EDT Height 162.6 cm (5' 4 ) 09/02/2019 7:15 AM EDT Body Mass Index 36.9 09/02/2019 7:15 AM EDT Plan of Treatment Health Maintenance Due Date Last Done Comments LIPID PANEL 1971 TSH LEVEL 1971 DEPRESSION SCREENING 1983 SMOKING Hx and SMOKELESS TOBACCO SCREENING 06/15/1984 HEPATITIS C SCREENING 06/15/1989 HIV ONE-TIME SCREENING (18-65 YEARS) 06/15/1989 PAP SMEAR 06/15/1992 MAMMOGRAM 2011 COLOGUARD 06/15/2016 COLONOSCOPY 06/15/2016 COLORECTAL CANCER SCREENING 06/15/2016 FIT TEST 06/15/2016 FOBT 06/15/2016 SIGMOIDOSCOPY 06/15/2016 VIRTUAL COLONOSCOPY 06/15/2016 PNEUMOCOCCAL VACCINES (50+ years) (1 of 1 - PCV) 06/15/2021 ZOSTER VACCINES (1 of 2) 06/15/2021 COVID-19 VACCINE ( season) 2023 05/10/2020, 04/12/2020 Adult Td,Tdap Booster 02/06/2030 02/07/2020 , 11/22/2009, 12/03/2000, Additional history exists HEPATITIS A VACCINES Aged Out No long er eligible based on patient's age to complete this topic HIB VACCINES Aged Out No longer eligi ble based on patient's age to complete this topic MENINGOCOCCAL VACCINES (ACWY) Aged Out No longer eligible based on patient's age to complete this topic MENINGOCOCCAL VACCINES (B) Aged Out N o longer eligible based on patient's age to complete this topic Medical Devices Not on file [place] [place] [address] [facility] H[facility] POS [facility] POS Care Teams Manipulative Therapy Specialist Relationship Specialty Start Date End Date Elisa Alarcon MD [address] [address] PCP - General Internal Medicine 03/28/21 Elisa Alarcon MD [address] [address] 09/02/19 Additional Source Comments The information contained in this document represents components of the legal health record. It is not the complete legal health record.[facility]
== END 2024-10-24 11:18 | disposition home or self-care (01) ==
LOC: HO.RHES 10:39
PROVIDERS: PCP Registered Nurse; Visit Provider Internal Medicine Rheumatology
DX: M30.0 Polyarteritis nodosa (principal); M17.12 Unilateral primary osteoarthritis, left knee
CPT/HCPCS: 99214

== ENCOUNTER 2024-10-24 10:38 | Outpatient (REF) | payer BC, SELFPAY ==
[2024-10-24 18:16] LABS: Baso%MD 0.4 %; Eos%MD 2.2 %; Hematocrit 37.7 % (37.0-47.0); Hemoglobin 13.0 g/dl (12.0-16.0); IG%MD 0.2 %; Lymph%MD 29.0 %; Mean Corpuscular HGB Conc 34.5 g/dl (31.0-35.0); Mean Corpuscular Hemoglobin 34.4 pg (27.0-33.0); Mean Corpuscular Volume 99.7 fL (80.0-98.0); Mono%MD 9.0 %; NRBC Abs Auto 0.000 X10*3/uL (0.0-0.012); NRBC Pct Auto 0.0 /100WBC (0.0-0.2); Neut%MD 59.2 %; Platelet Count 285 X10*3/uL (160-400); Red Blood Count 3.78 X10*6/uL (4.20-5.50); White Blood Count 4.6 X10*3/uL (4.8-10.8)
[2024-10-24 18:30] LABS: Alanine Aminotransferase 32 U/L (0-31); Aspartate Amino Transferase 18 U/L (5-31); Estimated Glomerular Filt Rate > 60
[2024-10-24 18:49] LABS: Band Neutrophils Percent 0 % (3-5); Eosinophils Percent Manual 1 % (0-4); Lymphocytes Absolute Manual 1.8 X10*3/uL (1.2-4.9); Lymphocytes Percent Manual 40 % (20-40); Monocytes Absolute Manual 0.3 X10*3/uL (0.1-1.2); Monocytes Percent Manual 7 % (2-11); Neutrophils Absolute Manual 2.4 X10*3/uL (2.0-8.3); Neutrophils Percent Manual 52 % (45-73)
[2024-10-24 18:50] LABS: RBC Morphology NORMAL
== END 2024-10-24 10:39 | disposition home or self-care (01) ==
LOC: HO.HKASLDS 10:38
PROVIDERS: PCP Registered Nurse; Visit Provider Internal Medicine Rheumatology
DX: M30.0 Polyarteritis nodosa (principal); M17.12 Unilateral primary osteoarthritis, left knee; Z79.631 Long term (current) use of antimetabolite agent; Z79.899 Other long term (current) drug therapy
CPT/HCPCS: 36415; 82565; 84450; 84460; 85007; 85027; 85652; 86140

== ENCOUNTER 2024-11-27 12:00 | Outpatient (REF) | payer BC, SELFPAY ==
--- OUTSIDE RECORDS SUMMARY | 2024-11-27 13:24 | XMS_ITS | Clinical Summary ---
Author Organization [facility] Address [address] [facility] [address] [place] [address] Phone Care Team Providers Care Referral Nurse Name Role Phone Elisa Alarcon MD Unavailable [phone]- [phone] Elisa Alarcon MD Primary Care Provid er [...] topic Medical Devices Not on file [place] [address] [place] [address] HMO [facility] H[facility] POS [facility] POS Care Teams Referral Nurse Relationship Specialty Start Date End Date Elisa Alarcon MD [address] [address] PCP - General Internal Medicine 03/28/21 Elisa Alarcon MD [address] [address] 09/02/19 Additional Source Comments The information contained in this document represents components of the legal health record. It is not the complete legal health record.[facility]
--- OUTSIDE RECORDS SUMMARY | 2024-11-27 13:24 | XMS_ITS | Clinical Summary ---
Author Organization [employer] Address [address] [facility] 7t [place] [address] Care Team Providers Care Legal Administrator Name Role Phone Unavailable Primary Care Provider Unavailabl e Social History Tobacco Use Types Packs/Day Years [...] of 2) 06/15/2021 COVID-19 Vaccine (3 - 2023- season) 2023 05/10/2020, 04/12/2020 Influenza Vaccine (#1) [...]
--- OUTSIDE RECORDS SUMMARY | 2024-11-27 13:25 | XMS_ITS | Clinical Summary ---
Author Organization [facility] Address [address] [place] [address] Care Team Providers Care Pulp Plant Supervisor Name Role Phone Genaro Jacinta ROLLE Primary [...] 2011 Colonoscopy 06/15/2016 Influenza Vaccine 11/03/2024 Insurance [facility] Care Teams Pulp Plant Supervisor Relationship Specialty Start Date End Date Jacinta Lam [place] [address] PCP - General Internal Medicine 05/04/23
--- OUTSIDE RECORDS SUMMARY | 2024-11-27 13:25 | XMS_ITS | Clinical Summary ---
Author Organization [facility] Address [address] [place] [address] Care Team Providers Care Music Manager Name Role Phone Elisa Alarcon MD Primary [...] age to complete this topic Care Teams Music Manager Relationship Specialty Start Date End Date Elisa Alarcon MD PCP - General Internal Medicine 02/17/21
== END 2024-11-27 12:01 | disposition home or self-care (01) ==
LOC: HO.HKASLDS 12:00
PROVIDERS: Visit Provider Internal Medicine Rheumatology
DX: Z13.89 Encounter for screening for other disorder (principal)

== ENCOUNTER 2024-12-27 08:57 | Outpatient (REF) | payer BC, SELFPAY ==
--- OUTSIDE RECORDS SUMMARY | 2024-12-27 10:34 | XMS_ITS | Clinical Summary ---
Author Organization [facility] Address [address] [place] [address] Care Team Providers Care Jewish History Professor Name Role Phone Elisa Alarcon MD Primary [...] age to complete this topic Care Teams Jewish History Professor Relationship Specialty Start Date End Date Elisa Alarcon MD PCP - General Internal Medicine 02/17/21
--- OUTSIDE RECORDS SUMMARY | 2024-12-27 10:34 | XMS_ITS | Clinical Summary ---
Author Organization [facility] Address [address] [place] [address] Care Team Providers Care Shellfish Bed Worker Name Role Phone Genaro Jacinta ROLLE Primary [...] 2011 Colonoscopy 06/15/2016 Influenza Vaccine 11/03/2024 Insurance [facility] Care Teams Shellfish Bed Worker Relationship Specialty Start Date End Date Jacinta Lam [place] [address] PCP - General Internal Medicine 05/04/23
--- OUTSIDE RECORDS SUMMARY | 2024-12-27 10:34 | XMS_ITS | Clinical Summary ---
Author Organization [employer] Address [address] [facility] 7t [place] [address] Care Team Providers Care Logistician Name Role Phone Unavailable Primary Care Provider [...] of 2) 06/15/2021 COVID-19 Vaccine (3 - 2024- season) 2024 05/10/2020, 04/12/2020 Influenza Vaccine (#1) 2024 , [...]
--- OUTSIDE RECORDS SUMMARY | 2024-12-27 10:34 | XMS_ITS | Clinical Summary ---
Author Organization [facility] Address [address] [facility] [address] [place] [address] Phone Care Team Providers Care Electric System Operator Name Role Phone Elisa Alarcon MD Unavailable [phone]- [phone] Elisa Alarcon MD Primary Care Provid er [...] VACCINES (1 of 2) 06/15/2021 COVID-19 VACCINE (3 season) 2023 05/10/2020, 04/12/2020 INFLUENZA VACCINE (#1) 2024 0, 12/26/2018, 12/06/2018, Additional history exists Adult Td,Tdap Booster 02/06/2030 02/07/2020 , 11/22/2009, [...] topic Medical Devices Not on file Insurance [facility] [place] [address] [place] [address]O POS [facility] POS Care Teams Electric System Operator Relationship Specialty Start Date End Date Elisa Alarcon MD [address] [address] PCP - General Internal Medicine 03/28/21 Elisa Alarcon MD [address] [address] 09/02/19 Additional Source Comments The information contained in this document represents components of the legal health record. It is not the complete legal health record.[facility]
[2024-12-27 13:57] LABS: Alanine Aminotransferase 15 U/L (0-31); Albumin Level 4.2 g/dL (3.5-5.0); Alkaline Phosphatase 65 U/L (39-117); Aspartate Amino Transferase 18 U/L (5-31); Total Protein 6.7 g/dL (6.5-8.0)
== END 2024-12-27 08:58 | disposition home or self-care (01) ==
LOC: HO.HKASLDS 08:57
PROVIDERS: Visit Provider Internal Medicine Rheumatology
DX: R74.01 Elevation of levels of liver transaminase levels (principal)
CPT/HCPCS: 36415; 80076

== ENCOUNTER 2025-01-18 08:16 | Outpatient (RCR) | payer BC, SELFPAY ==
[2024-11-27 18:07] LABS: Alanine Aminotransferase 63 U/L (0-31); Aspartate Amino Transferase 61 U/L (5-31)
--- NOTE | 2024-11-28 16:08 | MHC.PT.EP ---
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 signed by Dr. 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 signed by Dr. Patel 10/24/24. Pt notes recent change to medication; does weekly methotrexate injections on , notes by following Wednesday meds have worn off. Pt expressing sx of knee instability, catching/stiffness, and pain impacting her tolerance for ADL/IADLS, stairs, and mobility. Pt will benefit from attending skilled PT services at a frequency of 2x/week x 4-6 weeks to address impairments, implement HEP, and restore functional mobility tolerance to maximize function. Currently she has poor tolerance for getting up and down from the ground, has weakness in proximal hip abd/ext/core/quadriceps. She has limited tolerance for SLS, notes poor ability to stand on one foot. In her leisure she enjoys biking, hiking, and walking but has recently gotten back into exercise due to flare of arthritis/HERRERA. She has excellent rehab prognosis and a high level of motivation. Frequency and Duration: The patient will be seen 2x/week x 4 weeks Short Term Goals: 1. AROM L knee ext 0 degrees. 2. Complete SLR with good eccentric control. 3. Bed mobility MOD I. 4. Rise from floor MOD I L>R and R>L kneeling with good mechanics/strength. 5. Initiate self care/HEP program for L knee/core management. Terminal Press Operator Goals: 1. I HEP for self care management. 2. Strength L hip abd> R hip abd 5/5. 3. Strength L>R hip ext 5/5 B/L. 4. SLS 10 seconds on each LE to don clothing while dressing. 5. Rise up from squat with good control and balance. Treatment Plan: Modalities to reduce pain, spasms and effusion. Manual therapy to restore motion and function. Therapeutic exercise to improve strength and flexibility. Neuromuscular re-education for posture and balance. Therapeutic activities to return to functional activities of daily living. Electronically signed by: Thi Avila PT, DPT Please sign and return to therapist. Thank you for your referral.
[2025-01-18 13:28] LABS: MANUAL DIFF FLAG NO
[2025-01-18 13:38] LABS: Hematocrit 39.7 % (37.0-47.0); Hemoglobin 13.5 g/dl (12.0-16.0); Imm Gran Abs Auto 0.01 X10*3/uL (0.00-0.03); Imm Gran Pct Auto 0.3 % (0.0-0.4); Lymphocytes Absolute Auto 1.4 X10*3/uL (1.2-4.9); Mean Corpuscular HGB Conc 34.0 g/dl (31.0-35.0); Mean Corpuscular Hemoglobin 33.8 pg (27.0-33.0); Mean Corpuscular Volume 99.5 fL (80.0-98.0); NRBC Abs Auto 0.000 X10*3/uL (0.0-0.012); NRBC Pct Auto 0.0 /100WBC (0.0-0.2); Platelet Count 288 X10*3/uL (160-400); Red Blood Count 3.99 X10*6/uL (4.20-5.50); White Blood Count 4.0 X10*3/uL (4.8-10.8)
[2025-01-18 13:57] LABS: Alanine Aminotransferase 18 U/L (0-31); Aspartate Amino Transferase 18 U/L (5-31); Estimated Glomerular Filt Rate > 60
== END 2025-02-05 13:06 | disposition home or self-care (01) ==
LOC: HO.PTS 08:16
PROVIDERS: Visit Provider Internal Medicine Rheumatology
DX: M17.12 Unilateral primary osteoarthritis, left knee (principal)
CPT/HCPCS: 36415; 82565; 84450; 84460; 85025; 85652; 86140; 97110; 97162

== ENCOUNTER 2025-01-18 08:44 | Outpatient (REF) | payer BC, SELFPAY ==
--- OUTSIDE RECORDS SUMMARY | 2025-01-18 09:34 | XMS_ITS | Clinical Summary ---
Author Organization [facility] Address [address] [place] [address] Care Team Providers Care Aerodynamics Professor Name Role Phone Genaro Jacinta ROLLE Primary Care Provider [phone] Allergies No known active allergies Medications amLODIPine [...] (Ages 21-65) 06/15/1992 Mammogram 2011 Colonoscopy 06/15/2016 RSV Vaccine 50 years and old er and Patients (1 - Risk 50-74 years 1-dose series) 06/15/2021 Influenza Vaccine 11/03/2024 Insurance [facility] Care Teams Aerodynamics Professor Relationship Specialty Start Date End Date [place] [address] PCP - General Internal Medicine 05/04/23
--- OUTSIDE RECORDS SUMMARY | 2025-01-18 09:34 | XMS_ITS | Clinical Summary ---
Author Organization [employer] Address [address] [facility] 7t [place] [address] Care Team Providers Care Hot Dip Plating Supervisor Name Role Phone Unavailable Primary Care Provider [...]
--- OUTSIDE RECORDS SUMMARY | 2025-01-18 09:34 | XMS_ITS | Clinical Summary ---
Author Organization [facility] Address [address] [facility] [address] [place] [address] Phone Care Team Providers Care Physical Laboratory Assistant Name Role Phone Elisa Alarcon MD Unavailable +1- [phone] Elisa Alarcon MD Primary Care Provid er [...] 06/15/2021 ZOSTER VACCINES (1 of 2) 06/15/2021 INFLUENZA VACCINE (#1) 2024 , 12/26/2018, 12/06/2018, Additional history exists COVID-19 VACCINE ( season) 2024 05/10/2020, 04/12/2020 Adult Td,Tdap Booster 02/06/2030 02/07/2020 , 11/22/2009, 12/03/2000, Additional history exists RSV VACCINE (1 - 1-dose 75+ series) 06/15/2046 HEPATITIS A VACCINES Aged Out No long [...] topic Medical Devices Not on file Insurance [facility] HMO POS [facility] H[facility] POS [facility] POS Care Teams Physical Laboratory Assistant Relationship Specialty Start Date End Date Elisa Alarcon MD [address] [address] PCP - General Internal Medicine 03/28/21 Elisa Alarcon MD [address] [address] 09/02/19 Additional Source Comments The information contained in this document represents components of the legal health record. It is not the complete legal health record.[facility]
--- OUTSIDE RECORDS SUMMARY | 2025-01-18 09:34 | XMS_ITS | Clinical Summary ---
Author Organization [facility] Address [address] [place] [address] Care Team Providers Care Cleaning Team Member Name Role Phone Elisa Alarcon MD Primary [...] age to complete this topic Care Teams Cleaning Team Member Relationship Specialty Start Date End Date Elisa Alarcon MD PCP - General Internal Medicine 02/17/21
== END 2025-01-18 08:45 | disposition home or self-care (01) ==
LOC: HO.HKASLDS 08:44
PROVIDERS: Visit Provider Internal Medicine Rheumatology
DX: Z13.89 Encounter for screening for other disorder (principal)

== ENCOUNTER 2025-02-01 10:39 | Outpatient (AMB) | payer BC, SELFPAY ==
[2025-02-01 10:42] VITALS: BP 110/80; PULSE 69; O2SAT 99; BMI 32.1
--- NOTE | 2025-02-01 10:42 | MHC.OFFVIS ---
Vital Signs 02/01/25 10:42 Height 5 ft 4 in Weight 187 lb 2.759 oz BMI 32.1 BP 110/80 Blood Pressure Location Lt brachial Position Sitting Pulse 69 Pulse Source Pulse Oximeter Pulse Oximetry (%) 99 Oxygen Delivery Method Room Air Intake Visit Reasons: 3 Months Intake Note: Patient present for an Arthritis follow up Accompanied by: Self / Same As Patient Allergies No Known Allergies Allergy (Verified 02/01/25 10:42) Medication List - Last Reconciled 02/01/25 by Saúl Patel MD citalopram 30 mg PO DAILY diltiazem HCl ER 180 mg PO DAILY evolocumab (Repatha SureClick) 140 mg subcut Q2W famotidine 40 mg PO DAILY famotidine 40 mg PO DAILY folic acid 2 mg (2 x 1 mg) PO DAILY ibuprofen 600 mg PO Q8H PRN levothyroxine 75 mcg PO DAILY lorazepam 0.5 mg PO BEDTIME PRN melatonin 3 mg PO BEDTIME PRN methotrexate sodium 15 mg (0.6 mL) subcut QWEEK ondansetron HCl 8 mg PO Q12H ursodiol 300 mg PO BID valacyclovir 500 mg PO DAILY HPI HPI 3 Months: Details: R thigh pain with a lot of physical activity. SHe has had constant left knee pain worse than right knee pain. Missing dose of MTX to repeat labs increased her joint pain. It took a few weeks for pain to subside. Physical Exam Vital Signs: Last Vital Signs Pulse 69 02/01/25 10:42 BP 110/80 02/01/25 10:42 Pulse Ox 99 02/01/25 10:42 Oxygen Delivery Method Room Air 02/01/25 10:42 BMI result Body Mass Index 32.1 Const Other: General: Comfortable CVS: RRR Respiratory: clear to auscultation bilaterally. Good respiratory effort Skin: No lesions seen MSK: Tender bilateral knees. Mild synovitis left knee. Normal range of motion of upper extremity and lower extremity. Assessment & Plan Assessment & Plan (1) HERRERA (polyarteritis nodosa): Comment: She has episodic pain in right thigh localized to periostitis of right femur, which is still present on most recent follow up x-ray and unchanged when compared to x-ray from April 2023. Pain is exacerbated with overactivity. After last visit methotrexate dose was increased to optimize treatment but it revealed transaminitis. Methotrexate dose was reduced to 15 mg once weekly. During the time when she had labs done she also restarted set bound. Drug-induced transaminitis could have been from Zepbound. She is doing well on lower dose of methotrexate. 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 She then developed rare manifestation of periostitis of right femur 01/2023 resolving on repeat MRI 08/19/2023. Mouth ulcers on po MTX resolved with increase the folic acid to 2 mg daily. MTX SC 03/2022-09/2022 then restarted 02/2023-. AZA 09/2022-02/2023 d/c vomiting. Code(s): M30.0 - Polyarteritis nodosa Category: Medical Plan: Labs for disease and drug monitoring up-to-date Continue methotrexate 15 mg once weekly subcutaneous injection. She prefers to remain on subcutaneous injection as she experienced GI discomfort with oral methotrexate Continue folic acid 2 mg daily HSV prophylaxis with valacylovir 500 mg daily. If she has active genital HSV, I will increase frequency of valacyclovir to 500 mg b.i.d. Immunization: She will get up-to-date with pneumonia and shingles vaccine. Flu vaccine is up-to-date. Return to clinic in 3 months (2) Bilateral knee pain: Comment: Knee pain from osteoarthritis is uncontrolled. She completed PT with some benefit but continues to have persistent pain. In the past she had benefit from cortisone injections. Code(s): M25.561 - Pain in right knee; M25.562 - Pain in left knee Category: Medical Plan: X-ray bilateral knees ordered She will continue to K tape Continue PT exercises for strengthening Return to clinic next month for bilateral knee cortisone injection Orders: Orders Complete Blood Count Auto Diff 3 Months Z79.899 - Other intermediate manager (current) drug therapy Creatinine 3 Months Z79.899 - Other alf (current) drug therapy C Reactive Protein 3 Months Z79.899 - Other intermediate manager (current) drug therapy XR Knee Kaushal 3V Today M17.12 - Unilateral primary osteoarthritis, left knee, M25.561 - Pain in right knee, M25.562 - Pain in left knee Alanine Aminotransferase 3 Months Z79.899 - Other intermediate manager (current) drug therapy Aspartate Amino Transferase 3 Months Z79.899 - Other intermediate manager (current) drug therapy Erythrocyte Sedimentation Rate 3 Months Z79.899 - Other intermediate manager (current) drug therapy Coding Level of Care Code Est Pt Level 4 (40100) Complex EM visit Add On G2211 Diagnoses HERRERA (polyarteritis nodosa) M30.0 Bilateral knee pain M25.561; M25.562
--- OUTSIDE RECORDS SUMMARY | 2025-02-01 13:10 | XMS_ITS | Clinical Summary ---
Author Organization [facility] Address [address] [place] [address] Care Team Providers Care Turf Manager Name Role Phone Elisa Alarcon MD [...] age to complete this topic Care Teams Turf Manager Relationship Specialty Start Date End Date Elisa Alarcon MD PCP - General Internal Medicine 02/17/21
--- OUTSIDE RECORDS SUMMARY | 2025-02-01 13:10 | XMS_ITS | Clinical Summary ---
Author Organization [facility] Address [address] [facility] [address] [place] [address] Phone Care Team Providers Care Data Processing Auditor Name Role Phone Elisa Alarcon MD Unavailable [phone]- [phone] Elisa Alarcon MD Primary Care Provid er [...] topic Medical Devices Not on file Insurance [email or web address] POS [email or web address] HMO [facility] POS Care Teams Data Processing Auditor Relationship Specialty Start Date End Date Elisa Alarcon MD [address] [address] PCP - General Internal Medicine 03/28/21 Elisa Alarcon MD [address] [address] 09/02/19 Additional Source Comments The information contained in this document represents components of the legal health record. It is not the complete legal health record.[facility]
--- OUTSIDE RECORDS SUMMARY | 2025-02-01 13:10 | XMS_ITS | Clinical Summary ---
Author Organization [facility] Address [address] [place] [address] Care Team Providers Care Machine Baster Name Role Phone Genaro Jacinta ROLLE Primary [...] 1-dose series) 06/15/2021 Influenza Vaccine 11/03/2024 Insurance [facility] Care Teams Machine Baster Relationship Specialty Start Date End Date [place] [address] PCP - General Internal Medicine 05/04/23
--- OUTSIDE RECORDS SUMMARY | 2025-02-01 13:10 | XMS_ITS | Clinical Summary ---
Author Organization [facility] [employer] Address [address] [facility] [address] [place] [address] Care Team Providers Care Director Title Name Role Phone Unavailable Primary Care Provider [...]
== END 2025-02-01 11:14 | disposition home or self-care (01) ==
LOC: HO.RHES 10:40
PROVIDERS: PCP Registered Nurse; Visit Provider Internal Medicine Rheumatology
DX: M30.0 Polyarteritis nodosa (principal); M25.561 Pain in right knee; M25.562 Pain in left knee
CPT/HCPCS: 99214

== ENCOUNTER 2025-02-14 11:14 | Outpatient (REF) | payer BC, SELFPAY ==
--- NOTE | ~2025-02-14 | XR_ITS ---
EXAMINATION: XR KNEE AP STANDING CLINICAL INFORMATION: chronic bilateral knee pain COMPARISON: None available. TECHNIQUE: AP bilateral standing view of the knees was obtained. Lateral and sunrise views both knees.. FINDINGS: Joint space narrowing involving medial compartments both knees with small marginal osteophyte formation and sclerosis along the articular surface.. No acute cortical disruption or malalignment. Small volume suprapatellar bursa joint effusion, bilaterally. No lytic or blastic lesions. No vascular calcifications. No soft tissue calcifications. XR/XR Knee Kaushal 3V IMPRESSION: Medial compartment osteoarthrosis/osteoarthritis, moderate on the left and mild to moderate on the right knee. Suprapatellar bursa joint effusion, small volume, bilaterally Electronically signed by: Jacob Winters MD 02/14/2025 11:51 AM KYLE BARNEY
--- OUTSIDE RECORDS SUMMARY | 2025-02-14 13:53 | XMS_ITS | Clinical Summary ---
Author Organization [facility] Address [address] [facility] [address] [place] [address] Phone Care Team Providers Care Visual Arts Teacher Name Role Phone Elisa Alarcon MD Unavailable +1- [phone] Elisa Alarcon MD Primary Care Provid er [...] Comments LIPID PANEL 1971 TSH LEVEL 1971 IPV VACCINES (4 of 4 - 4-dose series) 1975 12/23/1972, 1971, 1971, Additional history exists DEPRESSION SCREENING 1983 SMOKING Hx and SMOKELESS [...] topic Medical Devices Not on file Insurance [facility] [place] [address] [address] HMO [facility] HMO POS [facility] POS [address] [place] Care Teams Visual Arts Teacher Relationship Specialty Start Date End Date Elisa Alarcon MD [address] [address] PCP - General Internal Medicine 03/28/21 Elisa Alarcon MD [address] [address] 09/02/19 Additional Source Comments The information contained in this document represents components of the legal health record. It is not the complete legal health record.[facility]
--- OUTSIDE RECORDS SUMMARY | 2025-02-14 13:53 | XMS_ITS | Clinical Summary ---
Author Organization [facility] Address [address] [place] [address] Care Team Providers Care Claims Analyst Name Role Phone Elisa Alarcon MD Primary [...] age to complete this topic Care Teams Claims Analyst Relationship Specialty Start Date End Date Elisa Alarcon MD PCP - General Internal Medicine 02/17/21
--- OUTSIDE RECORDS SUMMARY | 2025-02-14 13:53 | XMS_ITS | Clinical Summary ---
Author Organization [facility] Address [address] [place] [address] Care Team Providers Care Rougher Operator Name Role Phone Genaro Jacinta ROLLE Primary [...] 1-dose series) 06/15/2021 Influenza Vaccine 11/03/2024 Insurance [facility] Care Teams Rougher Operator Relationship Specialty Start Date End Date Jacinta [place] [address] PCP - General Internal Medicine 05/04/23
--- OUTSIDE RECORDS SUMMARY | 2025-02-14 13:53 | XMS_ITS | Clinical Summary ---
Author Organization [facility] Address [address] [facility] [address] [place] [address] Care Team Providers Care Stereo Map Plotter Operator Name Role Phone Unavailable Primary Care [...]
== END 2025-02-14 11:15 | disposition home or self-care (01) ==
LOC: HO.XRAY 11:14
PROVIDERS: Visit Provider Internal Medicine Rheumatology
DX: M17.12 Unilateral primary osteoarthritis, left knee (principal); M25.561 Pain in right knee
CPT/HCPCS: 73562

== ENCOUNTER → 2025-02-14 11:17 | Outpatient (BNV) | payer BC, SELFPAY | PROVIDERS: Visit Provider Radiology Diagnostic Radiology | DX: M25.561 Pain in right knee (principal); M25.562 Pain in left knee | CPT/HCPCS: 73562 ==

== ENCOUNTER 2025-02-20 09:15 | Outpatient (AMB) | payer BC, SELFPAY ==
[2025-02-20 09:20] VITALS: BP 122/74; PULSE 74; O2SAT 98; BMI 14.3
--- NOTE | 2025-02-20 09:20 | MHC.OFFVIS ---
Vital Signs 02/20/25 09:20 Height 5 ft 4 in Weight 83 lb 3 oz BMI 14.3 BP 122/74 Blood Pressure Location Lt brachial Position Sitting Pulse 74 Pulse Source Pulse Oximeter Pulse Oximetry (%) 98 Oxygen Delivery Method Room Air Intake Visit Reasons: bilateral cortisone injections/ MD req Intake Note: Pt presents today for bilateral cortisone injs. [employer] Vat Worker Required: No Accompanied by: Self / Same As Patient Allergies No Known Allergies Allergy (Verified 02/20/25 09:23) HPI HPI bilateral cortisone injections/ MD req: Details: She gained 20 lb. She is working on losing weight. She is exercising regularly. She continues to have knee pain. Physical Exam Vital Signs: Last Vital Signs Pulse 74 02/20/25 09:20 BP 122/74 02/20/25 09:20 Pulse Ox 98 02/20/25 09:20 Oxygen Delivery Method Room Air 02/20/25 09:20 BMI result Body Mass Index 14.3 Const Other: General: Comfortable MSK: Tender bilateral knees. Mild synovitis left knee. Office Procedures AMB Joint Injection/Aspiration Joint Injection/Aspiration Details: Bilateral knee joints Prep: site was prepped using aseptic technique Injected into each joint: 40 mg of, Kenalog, with 1 mL of and 1% plain lidocaine Procedure: Informed verbal consent was obtained. The patient tolerated the procedure well. Postprocedure protocol was discussed with patient. Coding 81441 - Bilateral Large Joint Procedure code (CPT) selection complete AMB Joint Injection/Aspiration Coding 28062 - Bilateral Large Joint Procedure code (CPT) selection complete Office Meds lidocaine (PF) 10 mg/mL (1 %) injection solution Performing Provider: Saúl Patel MD Performing Location: [facility] Administered by: Saúl aPtel MD on 02/20/25 14:40 Dose Route Admin Location Dispensed Lot Number Expiration Date [facility] [employer] 1 mL Infiltration 2 mL [id number] 12/04/27 21755-974-80 [facility] Total Dispensed Waste 2 mL 50 % Kenalog 40 mg/mL suspension for injection Performing Provider: Saúl Patel MD Performing Location: [facility] Administered by: Saúl Patel MD on 02/20/25 14:40 Dose Route Admin Location Dispensed Lot Number Expiration Date [facility] [employer] 40 mg intra-articular 1 mL [id number] 10/02/26 [address]-0 [employer] Total Dispensed Waste 1 mL 0 % lidocaine (PF) 10 mg/mL (1 %) injection solution Performing Provider: Saúl Patel MD Performing Location: [facility] Administered by: Saúl Patel MD on 02/20/25 14:40 Dose Route Admin Location Dispensed Lot Number Expiration Date [facility] [employer] 1 mL Infiltration 2 mL [id number] 12/04/27 51996-112-17 [employer] Total Dispensed Waste 2 mL 50 % Kenalog 40 mg/mL suspension for injection Performing Provider: Saúl Patel MD Performing Location: [facility] Administered by: Saúl Patel MD on 02/20/25 14:40 Dose Route Admin Location Dispensed Lot Number Expiration Date [facility] [employer] 40 mg intra-articular 1 mL [id number] 10/02/26 [address]-7 [employer] Total Dispensed Waste 1 mL 0 % Assessment & Plan Assessment & Plan (1) Bilateral knee pain: Comment: Knee pain from osteoarthritis is uncontrolled. She completed PT with some benefit but continues to have persistent pain. In the past she had benefit from cortisone injections. February 2025 x-rays reveal left moderate knee OA and right [id number] knee OA. Code(s): M25.561 - Pain in right knee; M25.562 - Pain in left knee Category: Medical Plan: Patient received bilateral knee cortisone injections She will continue to K taping Continue PT exercises for strengthening Return to clinic in 3 months for HERRERA management Orders: Orders AMB Joint Injection/Aspiration Today M25.561 - Pain in right knee, M25.562 - Pain in left knee AMB Joint Injection/Aspiration Today M25.561 - Pain in right knee, M25.562 - Pain in left knee Coding Level of Care Code Est Pt Level 3 (74420) Complex EM visit Add On G2211 Diagnoses Bilateral knee pain M25.561; M25.562 CPT Codes Coding - 53692 - Bilateral Large Joint: 71938 - Bilateral Large Joint ([id number]) Coding - 97564 - Bilateral Large Joint: 62518 - Bilateral Large Joint ([id number])
== END 2025-02-20 09:45 | disposition home or self-care (01) ==
LOC: HO.RHES 09:16
PROVIDERS: Visit Provider Internal Medicine Rheumatology
DX: M25.561 Pain in right knee (principal); M25.562 Pain in left knee
CPT/HCPCS: 20610

== ENCOUNTER → 2025-02-20 09:15 | Outpatient (BNVA) | payer BC, SELFPAY | PROVIDERS: Visit Provider Internal Medicine Rheumatology | DX: M25.561 Pain in right knee (principal); M25.562 Pain in left knee; M17.0 Bilateral primary osteoarthritis of knee | CPT/HCPCS: 20610; J2003; J3301 ==